=== PATIENT | female | born 1975 | race Caucasian/White ===

== ENCOUNTER 2016-03-14 10:55 | Emergency (ER) | payer MEDICAID ==
[~2016-03-14 10:55] MED LIST: ABIL1TAB5 PO; ABIL1TAB7 PO; ABIL2TAB2 PO; ABIL5TAB5 PO; ARIP1TAB PO; ATOR40TA PO; BENT10CA PO; CARA1TAB2 PO; CHLOR50TA PO; CIPR500T89 PO; CLON0.5T PO; COMP1TAB PO; DOXE50CA PO; FAMO20TA PO; FLAG500T PO; GABA600T PO; HYDR25TAB PO; KLON0.5T PO; LISI-538 PO; LISI10TA4 PO; ONDA1TAB15 SL; ONDA4TAB6 SL; PAXI25TA13 PO; PHENERGAN PR; PREVMIS PO; PRIN10TA PO; PROCTOZONE PR; PROTPAK PO; SIMV20TA2 PO; SIMV40TA2 PO; SUCR1SS PO; SUCR1TA PO; SULF1TAB72 PO; TRAZ50TA4 PO; VITA50003 PO; XANA0.25 PO; ZOCO20TA PO; ZOCO40TA PO; ZOFR20TA PO; [UNRECOGNIZED DRUG - CODE] TOP; thorazine PO
[2016-03-14] MEDS ORDERED: ONDANSETRON 4 MG ORAL DISINTEGRATING TAB (S0181) As Ordered ONE (11:54)
--- NOTE | 2016-03-14 12:00 | EDDOCDS ---
Nurse's Notes [facility] Name: Mouna Klein Age: 40 yrs Sex: Female : 1975 Arrival Date: 03/14/2016 Time: 10:55 Bed TR7 Private MD: [facility] - Adults Diagnosis: Nausea;Acute upper respiratory infection, unspecified Presentation: 03/14 10:59 Presenting complaint: Patient states: "I have a head cold and I am nauseated from my jo3 sinuses dripping". I called my provider and asked for Zodragan and she made me come here". Adult Sepsis Screening: The patient does not have new or worsening altered mentation. Patient's respiratory rate is less than 22. Systolic blood pressure is greater than 100. Patient has a qSOFA score of 0- Negative Sepsis Screen. Suicide/Homicide risk assessment- the patient denies having any suicidal and/or homicidal ideations and does not present with any other emotional, behavioral or mental health complaints. Status: Patient is not a auto service dispatcher or dependent. Transition of care: patient was not received from another setting of care. 10:59 Acuity: HUSSAIN Level 5 jo3 10:59 Method Of Arrival: Walkin/Carried/Asstd jo3 Triage Assessment: 11:04 General: Appears in no apparent distress, Behavior is appropriate for age, cooperative. jo3 HIV screening NA for this visit Offered previously. Neurological: Level of Consciousness is awake, alert, Oriented to person, place, time. Respiratory: Airway is patent Respiratory effort is even, unlabored. Derm: Skin is. 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 Abilify 20 mg Oral tab 1 tab once daily 2. Crestor 10 mg Oral tab 1 tab once daily 3. klonipin 0.025 as needed 4. thorazine 50mg daily - PMHx: Hypercholesterolemia; Schizophrenia; - PSHx: Hysterectomy; left wrist; - Social history: Smoking status: Patient states was never smoker of tobacco. Smoking status: No barriers to communication noted, The patient speaks fluent Romanian, Speaks appropriately for age. - Family history: Not pertinent. - : The pt / caregiver states he / she is not on anticoagulants. Home medication list is obtained from the patient. - Exposure Risk Screening:: None identified. Screenin:57 Screening information is obtained from the patient. Fall risk: No risks identified. ck1 Assistance ADL's: requires no assistance with activities of daily living. Abuse/DV Screen: The patient / caregiver reports he/she is: not in a situation that causes fear, pain or injury. Nutritional screening: No deficits noted. Advance Directives: Currently, there is no health care proxy. home support is adequate. Assessment: 11:58 General: Appears in no apparent distress, comfortable, Behavior is appropriate for age, ck1 cooperative. Pain: Denies pain. Respiratory: Respiratory effort is unlabored, Respiratory pattern is regular, symmetrical. GI: Reports nausea. Derm: Skin is pink, warm & dry. Vital Signs: 10:57 BP 111 / 77; Pulse 95; Resp 18; Temp 99.8(O); Pulse Ox 97% on R/A; Weight 52.16 kg (R); jrd Height 4 ft. 11 in. (149.86 cm) (R); Pain 0/10; 10:57 Body Mass Index 23.23 (52.16 kg, 149.86 cm) [facility] Vitals: 10:57 Log In Time: March 14, 2016 at 10:55. [facility] ED Course: 10:56 Patient visited by Selvin Mcknight PCA. jrd 10:56 [facility] is Private Physician. jrd 10:56 Patient moved to Waiting jrd 10:58 Patient visited by Selvin Mcknight PCA. jrd 10:58 Patient moved to Pre RCE jrd 11:02 Triage Initiated jo3 11:12 Patient moved to Triage 3 jf3 11:31 [facility] dt4 11:31 Jose De Jesus Ramirez MD is Attending Physician. dt4 11:31 Patient visited by Sara Henry PA-C. dt4 11:48 [facility] is Referral Physician. dt4 11:57 Patient moved to TR7 ck1 11:58 The patient / caregiver is instructed regarding the plan of care and ED course. ck1 11:58 No IV's were initiated during this patient's visit. No procedures done that require ck1 assistance. Administered Medications: 11:57 Drug: Ondansetron ODT 4 mg [ondansetron 4 mg disintegrating tablet (1 tabs)] Route: PO; ck1 Order Results: There are currently no results for this order. Outcome: 11:51 Discharge ordered by Provider. dt4 11:57 Discharge Assessment: Patient awake, alert and oriented x 3. No cognitive and/or ck1 functional deficits noted. Patient verbalized understanding of disposition instructions. patient administered narcotics - no. The following High Risk Discharge criteria are identified: None. Discharged to home ambulatory. Condition: stable. Discharge instructions given to patient, Instructed on discharge instructions, follow up and referral plans. medication usage, Demonstrated understanding of instructions, medications, Pt was receptive of discharge instructions/ teaching. Prescriptions given X 2. No special radiology studies were completed. Property :Personal belongings accompany Pt. 11:59 Patient left the ED. ck1 Signatures: Helene Lau,RN RN ck1 Beth OvalleRN RN jo3 Sara Henry, PA-C PA-C dt4 Selvin Mcknight, ADMINISTRATIVE MANAGER ADMINISTRATIVE MANAGER jrd Wenceslao Easton,RN RN jf3 Corrections: (The following items were deleted from the chart) 11:06 11:04 Social history Smoking status: No barriers to communication noted, The patient jo3 speaks fluent Romanian, Speaks appropriately for age, jo3 MTDD
--- NOTE | 2016-03-14 12:00 | EDDOCDS ---
Physician Documentation [facility] Name: Mouna Klein Age: 40 yrs Sex: Female : 1975 Arrival Date: 03/14/2016 Time: 10:55 Bed TR7 Private MD: [facility] - Adults Disposition: 03/14/16 11:51 Discharged to Home/Self Care. Impression: Nausea, Acute upper respiratory infection, unspecified. - Condition is Stable. - Discharge Instructions: Nausea, Adult, Upper Respiratory Infection, Adult. - Prescriptions for ZOFRAN ODT 4 mg Oral - dissolve 1 tablet by ORAL route 3-4 times daily As needed do not chew, do not swallow whole; 20 tablet. Fluticasone 50 mcg/actuation Nasal [place], Suspension - inhale 2 spray by INTRANASAL route once daily; 1 bottle. - Medication Reconciliation, Local Pharmacy Hours form. - Follow up: Emergency Department; When: As needed; Reason: Worsening of conditions. Follow up: [facility] - Adults; When: Call to arrange an appointment; Reason: Wound/Symptom Recheck, Recheck today's complaints, Continuance of care. - Problem is new. - Symptoms are unchanged. Historical: - Allergies: ACETAMINOPHEN"lungs swell"; Risperdal (Swelling); - Home Meds: 1. Abilify 20 mg Oral tab 1 tab once daily 2. Crestor 10 mg Oral tab 1 tab once daily 3. klonipin 0.025 as needed 4. thorazine 50mg daily - PMHx: Hypercholesterolemia; Schizophrenia; - PSHx: Hysterectomy; left wrist; - Social history: Smoking status: Patient states was never smoker of tobacco. Smoking status: No barriers to communication noted, The patient speaks fluent Taiwanese, Speaks appropriately for age. - Family history: Not pertinent. - : The pt / caregiver states he / she is not on anticoagulants. Home medication list is obtained from the patient. - Exposure Risk Screening:: None identified. 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 11 in. (149.86 cm) (R); Pain 0/10; 10:57 Body Mass Index 23.23 (52.16 kg, 149.86 cm) jrd MDM: 11:48 Ondansetron ODT Oral Disintegrating Tablet 4 mg PO once ordered. dt4 Administered Medications: 11:57 Drug: Ondansetron ODT 4 mg [ondansetron 4 mg disintegrating tablet (1 tabs)] Route: PO; ck1 Signatures: Helene Lau RN RN ck1 Beth Ovalle RN RN jo3 Sara Henry, HARDIK PARay dt4 The chart was reviewed and I authenticate all verbal orders and agree with the evaluation and treatment provided.Corrections: (The following items were deleted from the chart) 11:06 11:04 Social history Smoking status: No barriers to communication noted, The patient manasa speaks fluent Taiwanese, Speaks appropriately for age, jo3 MTDD
--- NOTE | 2016-03-16 12:59 | EDDOCDS ---
Nurse's Notes [facility] Name: Martinez Klein Age: 40 yrs Sex: Female : 1975 Arrival Date: 03/14/2016 Time: 10:55 Bed TR7 Private MD: [facility] - Adults Diagnosis: Nausea;Acute upper respiratory infection, unspecified Presentation: 03/14 10:59 Presenting complaint: Patient states: "I have a head cold and I am nauseated from my jo3 sinuses dripping". I called my provider and asked for Zofran and she made me come here". Adult Sepsis Screening: The patient does not have new or worsening altered mentation. Patient's respiratory rate is less than 22. Systolic blood pressure is greater than 100. Patient has a qSOFA score of 0- Negative Sepsis Screen. Suicide/Homicide risk assessment- the patient denies having any suicidal and/or homicidal ideations and does not present with any other emotional, behavioral or mental health complaints. Status: Patient is not a rehabilitation services director or dependent. Transition of care: patient was not received from another setting of care. 10:59 Acuity: HUSSAIN Level 5 jo3 10:59 Method Of Arrival: Walkin/Carried/Asstd jo3 Triage Assessment: 11:04 General: Appears in no apparent distress, Behavior is appropriate for age, cooperative. jo3 HIV screening NA for this visit Offered previously. Neurological: Level of Consciousness is awake, alert, Oriented to person, place, time. Respiratory: Airway is patent Respiratory effort is even, unlabored. Derm: Skin is. 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 Abilify 20 mg Oral tab 1 tab once daily 2. Crestor 10 mg Oral tab 1 tab once daily 3. klonipin 0.025 as needed 4. thorazine 50mg daily - PMHx: Hypercholesterolemia; Schizophrenia; - PSHx: Hysterectomy; left wrist; - Social history: Smoking status: Patient states was never smoker of tobacco. Smoking status: No barriers to communication noted, The patient speaks fluent Jamaican, Speaks appropriately for age. - Family history: Not pertinent. - : The pt / caregiver states he / she is not on anticoagulants. Home medication list is obtained from the patient. - Exposure Risk Screening:: None identified. Screenin:57 Screening information is obtained from the patient. Fall risk: No risks identified. ck1 Assistance ADL's: requires no assistance with activities of daily living. Abuse/DV Screen: The patient / caregiver reports he/she is: not in a situation that causes fear, pain or injury. Nutritional screening: No deficits noted. Advance Directives: Currently, there is no health care proxy. home support is adequate. Assessment: 11:58 General: Appears in no apparent distress, comfortable, Behavior is appropriate for age, ck1 cooperative. Pain: Denies pain. Respiratory: Respiratory effort is unlabored, Respiratory pattern is regular, symmetrical. GI: Reports nausea. Derm: Skin is pink, warm & dry. Vital Signs: 10:57 BP 111 / 77; Pulse 95; Resp 18; Temp 99.8(O); Pulse Ox 97% on R/A; Weight 52.16 kg (R); d Height 4 ft. 11 in. (149.86 cm) (R); Pain 0/10; 10:57 Body Mass Index 23.23 (52.16 kg, 149.86 cm) [facility] Vitals: 10:57 Log In Time: March 14, 2016 at 10:55. [facility] ED Course: 10:56 Patient visited by Selvin Mcknight PCA. jrd 10:56 [facility] is Private Physician. jrd 10:56 Patient moved to Waiting jrd 10:58 Patient visited by Selvin Mcknight PCA. jrd 10:58 Patient moved to Pre RCE jrd 11:02 Triage Initiated jo3 11:12 Patient moved to Triage 3 jf3 11:31 [facility] dt4 11:31 Jose De Jesus Ramirez MD is Attending Physician. dt4 11:31 Patient visited by Sara Henry PA-C. dt4 11:48 [facility] is Referral Physician. dt4 11:57 Patient moved to TR7 ck1 11:58 The patient / caregiver is instructed regarding the plan of care and ED course. ck1 11:58 No IV's were initiated during this patient's visit. No procedures done that require ck1 assistance. 14:57 [facility] Payment Agreement was scanned into [employer] and attached to record. lg 15:01 T-Sheet-- Draft Copy was scanned into [employer] and attached to record. gb 15:05 Patient name changed from Mouna\\S\\Tigist\\S\\Casinelli\\S\\ to Martinez\\S\\ \\S\\Casinelli. EDMS Administered Medications: 11:57 Drug: Ondansetron ODT 4 mg [ondansetron 4 mg disintegrating tablet (1 tabs)] Route: PO; ck1 Order Results: There are currently no results for this order. Outcome: 11:51 Discharge ordered by Provider. dt4 11:57 Discharge Assessment: Patient awake, alert and oriented x 3. No cognitive and/or ck1 functional deficits noted. Patient verbalized understanding of disposition instructions. patient administered narcotics - no. The following High Risk Discharge criteria are identified: None. Discharged to home ambulatory. Condition: stable. Discharge instructions given to patient, Instructed on discharge instructions, follow up and referral plans. medication usage, Demonstrated understanding of instructions, medications, Pt was receptive of discharge instructions/ teaching. Prescriptions given X 2. No special radiology studies were completed. Property :Personal belongings accompany Pt. 11:59 Patient left the ED. ck1 Signatures: Dispatcher [employer] EDMS Jessy Cole, Reg Reg gb Anna Craft, Reg Reg lg Helene Lau,RN RN ck1 Beth OvalleRN RN jo3 Sara Henry, PA-C PA-C dt4 Selvin Mcknight, KHALIDA DIGITAL MEDIA DESIGNER d Wenceslao Easton,RN RN jf3 Corrections: (The following items were deleted from the chart) 11:06 11:04 Social history Smoking status: No barriers to communication noted, The patient jo3 speaks fluent Jamaican, Speaks appropriately for age, jo3 Chart Complete MTDD
--- NOTE | 2016-03-16 12:59 | EDDOCDS ---
Physician Documentation [facility] Name: Martinez Klein Age: 40 yrs Sex: Female : 1975 Arrival Date: 03/14/2016 Time: 10:55 Bed TR7 Private MD: [facility] - Adults Disposition: 03/14/16 11:51 Discharged to Home/Self Care. Impression: Nausea, Acute upper respiratory infection, unspecified. - Condition is Stable. - Discharge Instructions: Nausea, Adult, Upper Respiratory Infection, Adult. - Prescriptions for ZOFRAN ODT 4 mg Oral - dissolve 1 tablet by ORAL route 3-4 times daily As needed do not chew, do not swallow whole; 20 tablet. Fluticasone 50 mcg/actuation Nasal [place], Suspension - inhale 2 spray by INTRANASAL route once daily; 1 bottle. - Medication Reconciliation, Local Pharmacy Hours form. - Follow up: Emergency Department; When: As needed; Reason: Worsening of conditions. Follow up: [facility] - Adults; When: Call to arrange an appointment; Reason: Wound/Symptom Recheck, Recheck today's complaints, Continuance of care. - Problem is new. - Symptoms are unchanged. Historical: - Allergies: ACETAMINOPHEN"lungs swell"; Risperdal (Swelling); - Home Meds: 1. Abilify 20 mg Oral tab 1 tab once daily 2. Crestor 10 mg Oral tab 1 tab once daily 3. klonipin 0.025 as needed 4. thorazine 50mg daily - PMHx: Hypercholesterolemia; Schizophrenia; - PSHx: Hysterectomy; left wrist; - Social history: Smoking status: Patient states was never smoker of tobacco. Smoking status: No barriers to communication noted, The patient speaks fluent East Timorese, Speaks appropriately for age. - Family history: Not pertinent. - : The pt / caregiver states he / she is not on anticoagulants. Home medication list is obtained from the patient. - Exposure Risk Screening:: None identified. 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 11 in. (149.86 cm) (R); Pain 0/10; 10:57 Body Mass Index 23.23 (52.16 kg, 149.86 cm) jrd MDM: 11:48 Ondansetron ODT Oral Disintegrating Tablet 4 mg PO once ordered. dt4 14:57 [facility] Payment Agreement was scanned into [employer] and attached to record. lg 15:01 T-Sheet-- Draft Copy was scanned into [employer] and attached to record. gb 15:01 Financial registration complete. gb Administered Medications: 11:57 Drug: Ondansetron ODT 4 mg [ondansetron 4 mg disintegrating tablet (1 tabs)] Route: PO; ck1 Signatures: Jessy Cole, Reg Reg gb Anna Craft, Reg Reg Helene BruceRN RN ck1 Beth OvalleRN RN jo3 Sara Henry, HARDIK PARay dt4 The chart was reviewed and I authenticate all verbal orders and agree with the evaluation and treatment provided.Corrections: (The following items were deleted from the chart) 11:06 11:04 Social history Smoking status: No barriers to communication noted, The patient jo3 speaks fluent East Timorese, Speaks appropriately for age, jo3 Attachments: 14:57 [facility] Payment Agreement lg 15:01 T-Sheet-- Draft Copy gb Chart Complete MTDD
--- NOTE | 2016-03-16 12:59 | EDDOCDS ---
Physician Documentation [facility] Name: Martinez Klein Age: 40 yrs Sex: Female : 1975 Arrival Date: 03/14/2016 Time: 10:55 Bed TR7 Private MD: [facility] - Adults Disposition: 03/14/16 11:51 Discharged to Home/Self Care. Impression: Nausea, Acute upper respiratory infection, unspecified. - Condition is Stable. - Discharge Instructions: Nausea, Adult, Upper Respiratory Infection, Adult. - Prescriptions for ZOFRAN ODT 4 mg Oral - dissolve 1 tablet by ORAL route 3-4 times daily As needed do not chew, do not swallow whole; 20 tablet. Fluticasone 50 mcg/actuation Nasal [place], Suspension - inhale 2 spray by INTRANASAL route once daily; 1 bottle. - Medication Reconciliation, Local Pharmacy Hours form. - Follow up: Emergency Department; When: As needed; Reason: Worsening of conditions. Follow up: [facility] - Adults; When: Call to arrange an appointment; Reason: Wound/Symptom Recheck, Recheck today's complaints, Continuance of care. - Problem is new. - Symptoms are unchanged. Historical: - Allergies: ACETAMINOPHEN"lungs swell"; Risperdal (Swelling); - Home Meds: 1. Abilify 20 mg Oral tab 1 tab once daily 2. Crestor 10 mg Oral tab 1 tab once daily 3. klonipin 0.025 as needed 4. thorazine 50mg daily - PMHx: Hypercholesterolemia; Schizophrenia; - PSHx: Hysterectomy; left wrist; - Social history: Smoking status: Patient states was never smoker of tobacco. Smoking status: No barriers to communication noted, The patient speaks fluent [place] Islander, Speaks appropriately for age. - Family history: Not pertinent. - : The pt / caregiver states he / she is not on anticoagulants. Home medication list is obtained from the patient. - Exposure Risk Screening:: None identified. 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 11 in. (149.86 cm) (R); Pain 0/10; 10:57 Body Mass Index 23.23 (52.16 kg, 149.86 cm) jrd MDM: 11:48 Ondansetron ODT Oral Disintegrating Tablet 4 mg PO once ordered. dt4 14:57 [facility] Payment Agreement was scanned into [employer] and attached to record. lg 15:01 T-Sheet-- Draft Copy was scanned into [employer] and attached to record. gb 15:01 Financial registration complete. gb Administered Medications: 11:57 Drug: Ondansetron ODT 4 mg [ondansetron 4 mg disintegrating tablet (1 tabs)] Route: PO; ck1 Signatures: Jessy Cole, Reg Reg gb Anna Craft, Reg Reg Helene BruceRN RN ck1 Beth OvalleRN RN jo3 Sara Henry, HARDIK PARay dt4 The chart was reviewed and I authenticate all verbal orders and agree with the evaluation and treatment provided.Corrections: (The following items were deleted from the chart) 11:06 11:04 Social history Smoking status: No barriers to communication noted, The patient jo3 speaks fluent [place] Islander, Speaks appropriately for age, jo3 Attachments: 14:57 [facility] Payment Agreement lg 15:01 T-Sheet-- Draft Copy gb Chart Complete MTDD
== END 2016-03-14 11:59 | disposition home or self-care (01) ==
LOC: M ED 10:55
DX: R11.0 Nausea (principal); J06.9 Acute upper respiratory infection, unspecified; E78.00 Pure hypercholesterolemia, unspecified; F20.9 Schizophrenia, unspecified; Z79.899 Other long term (current) drug therapy; Z88.6 Allergy status to analgesic agent; Z88.8 Allergy status to other drugs, medicaments and biological substances

== ENCOUNTER 2016-04-18 07:15 | Emergency (ER) | payer MEDICAID ==
[~2016-04-18] VITALS: Ht 149.9 cm; Wt 52.2 kg
[2016-04-18] MEDS ORDERED: NS 1,000 ML IV ONE (08:30)
[2016-04-18 08:48] LABS: CONTROL LINE UCG INT CTR LINE PRESENT
[2016-04-18 08:56] LABS: BASO % 0.1 % (0.0-1.0); EOS # 0.2 K/mm3 (0.0-0.50); EOS % 1.4 % (0.0-3.0); LARGE UNSTAINED CELL # 0.2 K/mm3 (0.0-0.4); LARGE UNSTAINED CELL % 1.1 % (0.0-4.0); LYMPH # 1.5 K/mm3 (1.5-4.5); LYMPH % 11.6 % (24.0-44.0); MEAN CORPUSCULAR HEMOGLOBIN 29.8 pg (27.0-33.0); MEAN CORPUSCULAR HGB CONC 33.9 g/dl (32.0-36.5); MEAN CORPUSCULAR VOLUME 87.8 fl (80.0-96.0); MONO # 0.4 K/mm3 (0.0-0.8); MONO % 3.3 % (0.0-5.0); NEUTROPHILS # 10.6 K/mm3 (1.8-7.7); NEUTROPHILS % 82.5 % (36.0-66.0); PLATELET COUNT, AUTOMATED 287 k/mm3 (150-450); RED CELL DISTRIBUTION WIDTH 12.3 % (11.5-14.5); WHITE BLOOD COUNT 12.9 K/mm3 (4.0-10.0)
[2016-04-18] MEDS ORDERED: ONDANSETRON 4MG/2ML VIAL (J2405) IV ONE (09:00)
[2016-04-18 09:25] LABS: ALBUMIN/GLOBULIN RATIO 1.05 (1.00-1.93); ALKALINE PHOSPHATASE 87 U/L (45-117); ALT/SGPT 17 U/L (12-78); AMYLASE 105 U/L (25-115); ANION GAP 12 MEQ/L (8-16); AST/SGOT 19 U/L (15-37); BILIRUBIN,DIRECT < 0.1 MG/DL (0.0-0.2); BILIRUBIN,TOTAL 0.5 MG/DL (0.2-1.0); BLOOD UREA NITROGEN 6 MG/DL (7-18); CALCIUM LEVEL 8.6 MG/DL (8.5-10.1); CARBON DIOXIDE LEVEL 23 MEQ/L (21-32); CHLORIDE LEVEL 105 MEQ/L (98-107); CREATININE FOR GFR 0.65 MG/DL (0.55-1.02); GLOMERULAR FILTRATION RATE > 60.0 (>58); GLUCOSE, FASTING 96 MG/DL (70-105); SODIUM LEVEL 140 MEQ/L (136-145); TOTAL PROTEIN 7.8 GM/DL (6.4-8.2)
[2016-04-18] MEDS ORDERED: ZOFR4TAB3 PO (10:00)
[2016-04-18 10:14] VITALS: BP 129/74
== END 2016-04-18 10:19 | disposition home or self-care (01) ==
LOC: M ED 07:37
DX: R11.2 Nausea with vomiting, unspecified (principal); I10 Essential (primary) hypertension; E78.00 Pure hypercholesterolemia, unspecified; F41.9 Anxiety disorder, unspecified; F32.9 Major depressive disorder, single episode, unspecified; F22 Delusional disorders; Z88.8 Allergy status to other drugs, medicaments and biological substances; Z79.899 Other long term (current) drug therapy
CPT/HCPCS: 80048; 80076; 81001; 82150; 83690; 83735; 84703; 85025; 96361; 96374; 99283; J2405

== ENCOUNTER → 2016-06-13 | Outpatient (CLI) | payer MEDICAID ==
[~2016-06-13] MED LIST changes: +ZOFR4TAB3 PO
--- NOTE | 2016-06-13 16:29 | REPMRS ---
Patient History The patient states she had a clinical breast exam in Family history of prostate cancer in paternal grandfather, breast cancer in sister at age 25, breast cancer in mother at age 35, breast cancer in 2 maternal aunts, and breast cancer in maternal grandmother at age 35. Digital Woman Screen Mammo: June 13, 2016 - Exam #: [id number] Bilateral CC and MLO view(s) were taken. Technologist: Marifer Pressley, Technologist Prior study comparison: April 27, 2015, digital woman screen mammo performed at [facility]. FINDINGS: The breast tissue is heterogeneously dense. This may lower the sensitivity of mammography. There has been no change in the appearance of the mammogram from the prior studies. There is a moderate amount of residual fibroglandular tissue which is fairly symmetric. There is no interval development of dominant mass, areas of architectural distortion, or clustered microcalcification typical of malignancy. ASSESSMENT: BI-RADS/ACR category 1 mammogram. Negative. Recommendation Routine screening mammogram in 1 year (for women over age 40). This mammogram was interpreted with the aid of an FDA-approved computer-aided dectection system. Electronically Signed By: Wally Chavez MD 06/13/16 [id number]
== END ==
LOC: M WHC 14:32
PROVIDERS: ATTEND Nurse Practitioner Women's Health
DX: Z12.13 Encounter for screening for malignant neoplasm of small intestine (principal); Z80.3 Family history of malignant neoplasm of breast

== ENCOUNTER → 2016-06-13 | Outpatient (REF) | payer MEDICAID | LOC: M SFHCWAGY 14:40 | PROVIDERS: ATTEND Nurse Practitioner Women's Health | DX: Z11.3 Encounter for screening for infections with a predominantly sexual mode of transmission (principal); Z11.4 Encounter for screening for human immunodeficiency virus [HIV] ==

== ENCOUNTER 2016-07-05 15:15 | Outpatient (RCR) | payer MEDICAID | END 2016-07-11 | LOC: M PT 15:15 | PROVIDERS: ATTEND Physician Assistant | DX: Z51.89 Encounter for other specified aftercare (principal) ==

== ENCOUNTER 2016-07-20 12:24 | Emergency (ER) | payer MEDICAID ==
[~2016-07-20] VITALS: Ht 149.9 cm; Wt 58.1 kg
[2016-07-20 12:24] VITALS: BP 129/76
[2016-07-20] MEDS ORDERED: ZOFR4TAB3 PO (13:27)
[2016-07-20] MEDS ORDERED: AMOX400S2 PO (13:27)
== END 2016-07-20 13:40 | disposition home or self-care (01) ==
LOC: M ED 13:37
DX: K04.7 Periapical abscess without sinus (principal); F99 Mental disorder, not otherwise specified; Z79.899 Other long term (current) drug therapy; Z88.8 Allergy status to other drugs, medicaments and biological substances

== ENCOUNTER → 2016-07-24 | Outpatient (REF) | payer MEDICAID ==
[~2016-07-24] MED LIST changes: +AMOX400S2 PO
[2016-07-24 15:20] LABS: ALBUMIN 3.6 GM/DL (3.2-5.2); ALBUMIN/GLOBULIN RATIO 1.03 (1.00-1.93); ALKALINE PHOSPHATASE 69 U/L (45-117); ALT/SGPT 19 U/L (12-78); ANION GAP 7 MEQ/L (8-16); AST/SGOT 18 U/L (15-37); BILIRUBIN,TOTAL 1.1 MG/DL (0.2-1.0); BLOOD UREA NITROGEN 9 MG/DL (7-18); CARBON DIOXIDE LEVEL 28 MEQ/L (21-32); CHLORIDE LEVEL 105 MEQ/L (98-107); CHOLESTEROL LEVEL 287 MG/DL (<200); CREATININE FOR GFR 0.73 MG/DL (0.55-1.02); GLOMERULAR FILTRATION RATE > 60.0 (>58); GLUCOSE, FASTING 88 MG/DL (70-105); POTASSIUM SERUM 4.7 MEQ/L (3.5-5.1); SODIUM LEVEL 140 MEQ/L (136-145); TOTAL PROTEIN 7.1 GM/DL (6.4-8.2); TRIGLYCERIDES LEVEL 63 MG/DL (<150)
== END ==
LOC: M LAB REF 13:57
PROVIDERS: ATTEND Nurse Practitioner Family
DX: R11.0 Nausea (principal); E55.9 Vitamin D deficiency, unspecified

== ENCOUNTER → 2016-10-01 | Outpatient (REF) | payer OTHER ==
[~2016-10-01] MED LIST changes: +ABIL10TA9 PO; +ABIL1TAB11 PO; +ABIL1TAB13 PO; -ABIL1TAB5 PO; -ABIL1TAB7 PO; +ABIL20TA5 PO; -ABIL2TAB2 PO; -ABIL5TAB5 PO; -ATOR40TA PO; +ATOR40TA75 PO; -CARA1TAB2 PO; +CARA1TAB6 PO; +CHIL100S45 PO; +CIPR-249 PO; -CIPR500T89 PO; +CLIN150C14 PO; +CODE15TA PO; +IBUP80TA PO; +MIRT1TAB PO; -ONDA1TAB15 SL; +ONDA4TAB5 SL; +ONDA8TAB8 PO; +TRAZ50TA11 PO; -TRAZ50TA4 PO; +VITA1CAP40 PO; -VITA50003 PO
== END ==
LOC: M LAB REF 05:17
PROVIDERS: ATTEND Internal Medicine Gastroenterology
DX: R11.0 Nausea (principal)

== ENCOUNTER 2016-10-07 07:05 | Emergency (ER) | payer OTHER ==
[~2016-10-07 07:05] MED LIST changes: -CHIL100S45 PO; -CLIN150C14 PO; -CODE15TA PO; -IBUP80TA PO; -MIRT1TAB PO; -ONDA8TAB8 PO
[2016-10-07 07:12] VITALS: BP 126/83
[2016-10-07] MEDS ORDERED: CODE15TA PO (07:18)
[2016-10-07] MEDS ORDERED: MIRT1TAB PO (07:18)
[2016-10-07] MEDS ORDERED: CLINDAMYCIN 150 MG CAP PO ONE (07:30)
[2016-10-07] MEDS ORDERED: CLIN150C14 PO (07:34)
[2016-10-07] MEDS ORDERED: IBUP80TA PO (07:34)
[2016-10-07] MEDS ORDERED: ZOFR4TAB3 PO (07:36)
[2016-10-07] MEDS ORDERED: ONDANSETRON 4 MG ORAL DISINTEGRATING TAB (S0181) PO ONE (07:45)
== END 2016-10-07 08:06 | disposition home or self-care (01) ==
LOC: M ED 07:05
DX: K04.7 Periapical abscess without sinus (principal); Z98.890 Other specified postprocedural states; I10 Essential (primary) hypertension; E78.00 Pure hypercholesterolemia, unspecified; F33.9 Major depressive disorder, recurrent, unspecified; F41.9 Anxiety disorder, unspecified; F22 Delusional disorders; Z79.899 Other long term (current) drug therapy; Z88.8 Allergy status to other drugs, medicaments and biological substances

== ENCOUNTER 2016-11-30 07:19 | Emergency (ER) | payer OTHER ==
[~2016-11-30] VITALS: Ht 149.9 cm; Wt 59.1 kg
[~2016-11-30 07:19] MED LIST changes: +CLIN150C14 PO; +CODE15TA PO; +IBUP80TA PO; +MIRT1TAB PO
--- NOTE | 2016-11-30 09:04 | REP ---
MAXILLOFACIAL CT WITHOUT CONTRAST: HISTORY: Fall. There is a fracture of the medial wall of the left orbit. A moderate amount of air is present in the left orbit. Contents of the left orbit are intact. The left globe, optic nerves and rectus muscles are normal in appearance. Contents of the right orbit are normal. Minimal mucosal thickening is present in the left ethmoid sinus. The remaining sinuses are clear. The ostiomeatal units are patent. The middle and inferior nasal turbinates are partially paradoxical. There is mild deviation of the nasal septum to the right. The cribriform plate, medial tobar of the right orbit and optic canals are intact. The carotid canals form a segment of the posterolateral tobar of the sphenoid sinus. IMPRESSION: 1. Fracture of the medial wall of the left orbit. 2. Sinus mucosal thickening as described above. Signed by Bandar Chacon MD 11/30/2016 09:09 A
[2016-11-30] MEDS ORDERED: IBUPROFEN 600 MG TAB PO ONE (10:45)
[2016-11-30 11:42] VITALS: BP 150/83
[2016-12-01] MEDS ORDERED: ONDA8TAB8 PO (10:26)
[2016-12-01] MEDS ORDERED: CHIL100S45 PO (10:28)
== END 2016-11-30 11:43 | disposition short-term general hospital (02) ==
LOC: M ED 07:19
DX: S02.82XA Fracture of other specified skull and facial bones, left side, initial encounter for closed fracture (principal); W10.9XXA Fall (on) (from) unspecified stairs and steps, initial encounter; Y92.019 Unspecified place in single-family (private) house as the place of occurrence of the external cause; Y93.89 Activity, other specified; Y99.8 Other external cause status; I10 Essential (primary) hypertension; Z79.899 Other long term (current) drug therapy; Z88.8 Allergy status to other drugs, medicaments and biological substances

== ENCOUNTER 2016-12-01 08:31 | Emergency (ER) | payer OTHER ==
[~2016-12-01] VITALS: Ht 147.3 cm; Wt 59.1 kg
[2016-12-01] MEDS ORDERED: ONDA8TAB8 PO (10:26)
[2016-12-01] MEDS ORDERED: CHIL100S45 PO (10:28)
[2016-12-01] MEDS ORDERED: KETOROLAC 60 MG/2 ML VIAL (J1885) IM ONE (10:30)
[2016-12-01] MEDS ORDERED: ONDANSETRON 4 MG ORAL DISINTEGRATING TAB (S0181) PO ONE (10:30)
[2016-12-01 10:56] VITALS: BP 136/92
== END 2016-12-01 10:58 | disposition home or self-care (01) ==
LOC: M ED 08:31
DX: G44.309 Post-traumatic headache, unspecified, not intractable (principal); R11.0 Nausea; H57.8 Other specified disorders of eye and adnexa; Z79.899 Other long term (current) drug therapy; Z88.8 Allergy status to other drugs, medicaments and biological substances
CPT/HCPCS: 96372; 99283; J1885

== ENCOUNTER 2016-12-03 06:17 | Inpatient (IN) | payer OTHER ==
[~2016-12-03] VITALS: Ht 149.9 cm; Wt 57.0 kg
[~2016-12-03 06:17] MED LIST changes: +CHIL100S45 PO; +ONDA8TAB8 PO
[2016-12-03] MEDS ORDERED: CitaloPRAM (CeleXA) 20 MG TAB PO SCH (09:00)
[2016-12-03 09:32] LABS: MEAN CORPUSCULAR HEMOGLOBIN 29.9 pg (27.0-33.0); MEAN CORPUSCULAR HGB CONC 33.7 g/dl (32.0-36.5); MEAN CORPUSCULAR VOLUME 88.9 fl (80.0-96.0); PLATELET COUNT, AUTOMATED 302 10^3/uL (150-450); RED CELL DISTRIBUTION WIDTH 12.9 % (11.5-14.5); WHITE BLOOD COUNT 7.4 10^3/uL (4.0-10.0)
[2016-12-03 09:43] LABS: ALBUMIN 4.1 GM/DL (3.2-5.2); ALBUMIN/GLOBULIN RATIO 1.28 (1.00-1.93); ALKALINE PHOSPHATASE 61 U/L (45-117); ALT/SGPT 20 U/L (12-78); ANION GAP 8 MEQ/L (8-16); AST/SGOT 16 U/L (15-37); BILIRUBIN,DIRECT 0.3 MG/DL (0.0-0.2); BLOOD UREA NITROGEN 10 MG/DL (7-18); CALCIUM LEVEL 9.1 MG/DL (8.5-10.1); CARBON DIOXIDE LEVEL 23 MEQ/L (21-32); CHLORIDE LEVEL 109 MEQ/L (98-107); CREATININE FOR GFR 0.84 MG/DL (0.55-1.02); GLOMERULAR FILTRATION RATE > 60.0 (>58); GLUCOSE, FASTING 106 MG/DL (70-105); POTASSIUM SERUM 4.2 MEQ/L (3.5-5.1); SODIUM LEVEL 140 MEQ/L (136-145); TOTAL PROTEIN 7.3 GM/DL (6.4-8.2)
[2016-12-03 10:18] LABS: METHADONE URINE NEGATIVE (NEGATIVE)
[2016-12-03] MEDS ORDERED: LORazepam 2 MG TAB PO ONE (12:15)
[2016-12-03] MEDS ORDERED: IBUPROFEN 600 MG TAB PO ONE (13:15)
[2016-12-03] MEDS ORDERED: ONDANSETRON 4 MG ORAL DISINTEGRATING TAB (S0181) PO ONE (13:30)
[2016-12-03] MEDS ORDERED: traZODone 50 MG TAB PO PRN (14:45)
[2016-12-03] MEDS ORDERED: MOM 30ML SUSPENSION UDC PO PRN (14:45)
[2016-12-03] MEDS ORDERED: MAALOX 30 ML SUSP *UDC PO PRN (14:45)
[2016-12-03 15:21] LABS: CONTROL LINE HCG INT CTR LINE PRESENT
[2016-12-03 15:51] VITALS: BP 142/90
[2016-12-03] MEDS: ARIPiprazole 10 MG TAB PO SCH (20:09)
[2016-12-03] MEDS: clonazePAM 0.5 MG TAB PO PRN (20:10)
[2016-12-03] MEDS: MIRTAZAPINE 7.5MG PER 1/2 TABLET PO SCH (20:10)
[2016-12-03] MEDS: ONDANSETRON 4 MG ORAL DISINTEGRATING TAB (S0181) PO PRN (20:10)
[2016-12-04] MEDS: ONDANSETRON 4 MG ORAL DISINTEGRATING TAB (S0181) PO PRN ×2 (06:03→15:24)
[2016-12-04] MEDS: clonazePAM 0.5 MG TAB PO PRN ×2 (06:03→20:00)
[2016-12-04 06:50] VITALS: BP 130/80
[2016-12-04] MEDS: IBUPROFEN 800 MG TAB PO PRN ×2 (07:47→17:30)
[2016-12-04] MEDS: ARIPiprazole 10 MG TAB PO SCH ×2 (08:06→20:01)
[2016-12-04] MEDS ORDERED: CitaloPRAM (CeleXA) 10 MG TABLET PO SCH (09:00)
--- NOTE | 2016-12-04 10:15 | HPEPDOC ---
[facility] Medical History & Physical Date of Admission Dec 03, 2016 History and Physical PCP: Dr Andrea Salazar ATTENDING: Dr. Roddy Dias HPI: 41 yoF admitted to [facility] for unspecified mood disorder, being medically examined today. Patient was seen in the emergency department 11/30/16 related to left orbit fracture. She states she was walking down her stairs. Her left shoelace was untied and she subsequently tripped over it. She fell down 10 stairs hitting the left side of her head. She denies loss of consciousness. She was evaluated in the emergency department 11/30/16 and found to have a left orbit fracture. She was transferred to [facility] for further evaluation. According to the patient she was felt not to need any surgical intervention at this time. She was arranged for ENT follow-up and ophthalmology follow-up within 2 weeks. She states she was discharged 12/02/16. She was placed on precautions of no excessive bending, not to use straws, and not to blow her nose. She states she has had some mild nausea for which she was prescribed Zofran as needed. She was told to use ibuprofen 800 mg every 8 hours as needed for pain or headache. She states nausea has been improving. She does notice some postnasal drip which tends to cause her to have some nausea. She has occasional slight headache however this has been mild. She denies any vision changes, diplopia, dizziness, vertigo, dysarthria or dysphagia. She denies any epistaxis. No increased head pain or eye pain. She has had some bruising and swelling around her left eye. Denies any fevers, chills, weakness, fatigue, PELAYO, CP, SOB, cough, palpitations, abdominal pain, N/V/D or changes in bowel or bladder habits. PMHx: Anxiety Depression Schizophrenia Vitamin D deficiency History of head trauma at 2 years old. Hypertension Dyslipidemia History of H. pylori 2013 PSHX: [place] teeth extraction Hysterectomy 2 SOCHX: Resides in: [facility] Marital Status: Kids: 2 Employment: Unemployed Tobacco use: Denies ETOH: Denies Illicit Drugs: Denies IV Drug Use: Denies Tattoos done unprofessionally: Denies FAMHX: Mother: Alive, breast cancer s/p chemotherapy Maternal grandmother, maternal aunt and patient's sister have breast cancer Father: from an unknown cancer Siblings: Alive, well Children: Alive, well ROS: As noted in HPI, otherwise 11pt ROS of systems reviewed and remarkable only for LMP NA, hysterectomy. PE: GEN: 41yoF, appears stated age. Well-nourished, well developed. No acute distress. Alert and oriented x 3. Pleasant, interactive. HEENT: Ecchymosis and mild edema is noted around the left orbit area and left maxillary area. Pupils are equal, round, and reactive to light. Extraocular movements are intact. No nystagmus appreciated. Sclera are nonicteric. Conjunctiva without injection. Nose midline. Nasal turbinates without bogginess. EACs both patent BL. TMs both visualized and riley with good cone of light, no bulging or erythema. No facial asymmetry. Moist mucous membranes. Dentition fair. Pharynx pink and moist, no cobblestoning. Neck supple, trachea midline. No lymphadenopathy or thyromegaly appreciated. CHEST: Regular rate and rhythm, +S1, +S2 LUNGS: Clear to auscultation bilaterally. No wheezes, rales, or rhonchi. Breathing appears symmetric and easy. Patient is speaking in full sentences. No accessory muscle use. ABD: Round, soft, non-tender, non-distended. +Bowel sounds throughout. No rebound or guarding. No costovertebral angle tenderness. EXT: Pulses 2+ bilaterally dorsalis pedis and radial. No lower extremity edema appreciated. SKIN: [place], dry, warm. Capillary refill <2sec. area of erythema is noted at the right upper chest consistent with dermatophytosis. NEURO: Alert and oriented x 3. Cranial nerves III-XII are intact. No focal deficits appreciated. EKG: pending. Maxillo facial CT 11/30/16 1. Fracture of the medial wall of the left orbit. 2. Sinus mucosal thickening as described above. A&P: 41 yoF admitted to [facility] for unspecified mood disorder 1. Psych. Plan per Psychiatry. Obtain baseline EKG to assure the safety of psychiatric medications as they can prolong the QT interval. 2. Left orbit fracture. Continue with Zofran 4 mg by mouth every 8 hours as needed. Continue with ibuprofen 800 mg every 8 hours as needed. Request copy of discharge summary and discharge instructions from [facility]. Continue restrictions as per ENT [facility]. Keep appointment for outpatient follow-up with ENT and ophthalmology as arranged by Monica. 3. Vitamin D deficiency. Continue supplement. Update vitamin D level. 4. Follow up with PCP on discharge. 5. Substance use. Per psychiatry. 6. Dermatophytosis right upper chest area. Apply clotrimazole cream twice a day. Monitor. Staff member Phoebe RETANA present throughout exam. Vital Signs Vital Signs Date Time Temp Pulse Resp B/P (MAP) Pulse Ox O2 Delivery O2 Flow Rate FiO2 12/04/16 06:50 98.8 92 16 130/80 (97) 12/03/16 15:51 Room Air 12/03/16 15:28 96 Laboratory Data Labs 24H Item Value Date Time Calcium Level 8.3 MG/DL L 07/14/15 0752 Total Bilirubin 1.0 MG/DL 07/14/15 0752 Direct Bilirubin 0.2 MG/DL 07/14/15 0752 Aspartate Amino Transf (AST/SGOT) 21 U/L 07/14/15 0752 Alanine Aminotransferase (ALT/SGPT) 14 U/L 07/14/15 0752 Alkaline Phosphatase 61 U/L 07/14/15 0752 Total Protein 7.1 GM/DL 07/14/15 0752 Albumin 4.1 GM/DL 07/14/15 0752 Albumin/Globulin Ratio 1.37 07/14/15 0752 Thyroid Stimulating Hormone (TSH) 1.390 uIU/ML 07/14/15 0752 White Blood Count 7.4 10^3/uL 12/03/16 0857 Red Blood Count 4.68 10^6/uL 12/03/16 0857 Hemoglobin 14.0 g/dl 12/03/16 0857 Hematocrit 41.6 % 12/03/16 0857 Mean Corpuscular Volume 88.9 fl 12/03/16 0857 Mean Corpuscular Hemoglobin 29.9 pg 12/03/16 0857 Mean Corpuscular Hemoglobin Concent 33.7 g/dl 12/03/16 0857 Red Cell Distribution Width 12.9 % 12/03/16 0857 Platelet Count 302 10^3/uL 12/03/16 0857 Nucleated Red Blood Cells % (auto) 0.0 % 12/03/16 0857 Sodium Level 140 MEQ/L 12/03/16 0857 Potassium Level 4.2 MEQ/L 12/03/16 0857 Chloride Level 109 MEQ/L H 12/03/16 0857 Carbon Dioxide Level 23 MEQ/L 12/03/16 0857 Anion Gap 8 MEQ/L 12/03/16 0857 Blood Urea Nitrogen 10 MG/DL 12/03/16 0857 Creatinine 0.84 MG/DL 12/03/16 0857 Glomerular Filtration Rate > 60.0 12/03/16 0857 Fasting Glucose 106 MG/DL H 12/03/16 0857 Calcium Level 9.1 MG/DL 12/03/16 0857 Total Bilirubin 2.0 MG/DL H 12/03/16 0857 Direct Bilirubin 0.3 MG/DL H 12/03/16 0857 Aspartate Amino Transf (AST/SGOT) 16 U/L 12/03/16 0857 Alanine Aminotransferase (ALT/SGPT) 20 U/L 12/03/16 0857 Alkaline Phosphatase 61 U/L 12/03/16 0857 Total Protein 7.3 GM/DL 12/03/16 0857 Albumin 4.1 GM/DL 12/03/16 0857 Albumin/Globulin Ratio 1.28 12/03/16 0857 Thyroid Stimulating Hormone (TSH) 1.150 uIU/ML 12/03/16 0857 Human Chorionic Gonadotropin, Qual NEGATIVE 12/03/16 0857 Salicylates Level 2.4 MG/DL L 12/03/16 0857 Urine Opiates Screen NEGATIVE 12/03/16 0946 Urine Methadone Screen NEGATIVE 12/03/16 0946 Acetaminophen Level < 2.0 UG/ML L 12/03/16 0857 Urine Barbiturates Screen NEGATIVE 12/03/16 0946 Urine Phencyclidine Screen NEGATIVE 12/03/16 0946 Urine Amphetamines Screen NEGATIVE 12/03/16 0946 Urine Benzodiazepines Screen NEGATIVE 12/03/16 0946 Urine Cocaine Metabolite Screen NEGATIVE 12/03/16 0946 Urine Cannabinoids Screen POSITIVE H 12/03/16 0946 Ethyl Alcohol Level < 0.003 % 12/03/16 0857 Home Medications Scheduled Aripiprazole (Aripiprazole) 10 Mg Tab, 10 MG PO BID for mood Ergocalciferol (Vitamin D) 50,000 Unit Cap, 50,000 UNIT PO 1XWK for Vit D Supplement Mirtazapine (Mirtazapine) 7.5 Mg Tab, 7.5 MG PO QHS Scheduled PRN Clonazepam (Clonazepam) 0.5 Mg Tab, 0.5 MG PO BIDP PRN for anxiety Ibuprofen (Childrens Motrin) 100 Mg/5 Ml Eleanor, 800 MG PO Q8HP PRN for pain Ondansetron (Ondansetron Odt) 8 Mg Tab, 8 MG PO Q8HP PRN for NAUSEA Allergies Coded Allergies: Risperidone (Verified Allergy, Severe, TONGUE SWELLS, 11/30/16) Acetaminophen (Verified Allergy, Intermediate, HIVES, 11/30/16) [place] (Verified Allergy, Mild, RASH, 11/30/16) Faye Mcmillan Dec 04, 2016 10:14
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
[2016-12-04] MEDS: CLOTRIMAZOLE 1% TOPICAL CREAM 30GM TOP SCH ×2 (10:56→20:01)
[2016-12-04 18:00] VITALS: BP 118/70
[2016-12-04] MEDS: MIRTAZAPINE 7.5MG PER 1/2 TABLET PO SCH (20:01)
[2016-12-05 07:14] VITALS: BP 141/89
[2016-12-05] MEDS: ONDANSETRON 4 MG ORAL DISINTEGRATING TAB (S0181) PO PRN ×3 (07:41→20:19)
[2016-12-05] MEDS: ARIPiprazole 10 MG TAB PO SCH ×2 (08:08→20:18)
[2016-12-05] MEDS: clonazePAM 0.5 MG TAB PO PRN ×2 (08:08→20:18)
[2016-12-05] MEDS: CLOTRIMAZOLE 1% TOPICAL CREAM 30GM TOP SCH ×2 (08:08→20:19)
[2016-12-05] MEDS: VITAMIN D 1,000 INTERNATIONAL UNITS TABLET PO SCH (09:21)
--- NOTE | 2016-12-05 18:11 | IPN ---
DATE: 12/05/2016 41-year-old female with history of schizophrenia admitted with command auditory hallucinations telling to hurt herself, also visual hallucinations and very high anxiety. The patient was unable to sleep or relax and was afraid she was going to end up hurting herself. MEDICATIONS: - Abilify 10 mg by mouth twice a day - Remeron 7.5 mg by mouth at bedtime - Klonopin 0.5 mg by mouth twice a day as needed for anxiety - trazodone 50 mg by mouth at bedtime as needed for insomnia SUBJECTIVE: "I am feeling about the same. I still hear the voices". OBJECTIVE: No major changes from yesterday. The patient continues with command auditory hallucinations and visual hallucinations. She is highly anxious. The patient is tolerating well the medication. Is compliant with the treatment and recommendation. Is motivated to get better. Is insightful about her psychiatric illness, but again highly anxious. MENTAL STATUS EXAM: The patient is dressed in [facility]. The patient is clean and well groomed. Has fair eye contact. Speech is normal in rate, volume and articulation. Mood is highly anxious. Affect is blunted. Patient reports auditory and visual hallucinations as above. Memory is fair. Patient is fully oriented. Patient is able to contract for safety during the interview, but reports command auditory hallucinations and is afraid she may hurt herself. Insight and judgment is limited. ASSESSMENT: 1. Schizophrenia. 2. Panic disorder. PLAN: 1. Continue with Abilify 10 mg by mouth twice a day 2. Continue Remeron 7.5 mg by mouth at bedtime 3. Continue Klonopin 0.5 mg by mouth twice a day as needed anxiety 4. Continue trazodone 50 mg by mouth at bedtime as needed for insomnia. 5. Continue medication management, individual and group therapy.
[2016-12-05] MEDS: MIRTAZAPINE 7.5MG PER 1/2 TABLET PO SCH (20:19)
--- NOTE | 2016-12-05 20:52 | ECGEPIP ---
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
[2016-12-06] MEDS: ONDANSETRON 4 MG ORAL DISINTEGRATING TAB (S0181) PO PRN ×3 (06:28→20:17)
[2016-12-06 07:11] VITALS: BP 115/69
[2016-12-06] MEDS: CLOTRIMAZOLE 1% TOPICAL CREAM 30GM TOP SCH ×2 (08:30→20:17)
[2016-12-06] MEDS: VITAMIN D 1,000 INTERNATIONAL UNITS TABLET PO SCH (08:30)
[2016-12-06] MEDS: clonazePAM 0.5 MG TAB PO PRN ×2 (08:30→20:17)
[2016-12-06] MEDS: ARIPiprazole 10 MG TAB PO SCH ×2 (08:32→20:17)
[2016-12-06 18:00] VITALS: BP 130/85
[2016-12-06] MEDS: MIRTAZAPINE 7.5MG PER 1/2 TABLET PO SCH (20:17)
--- NOTE | 2016-12-06 21:01 | MHIPN ---
DATE: 12/06/2016 A 41-year-old female with a history of schizophrenia, admitted for command auditory hallucinations telling her to hurt herself, also reported visual hallucinations and was somewhat paranoid. Patient was unable to sleep or relax and was afraid that she was end up hurting herself. MEDICATIONS: - Abilify 10 mg by mouth twice a day - Remeron 7.5 mg by mouth nightly - Klonopin 0.5 mg by mouth twice a day as needed for anxiety - trazodone 50 mg by mouth nightly as needed for insomnia SUBJECTIVE: "I'm still hearing the voices, but I think I'm a little better." OBJECTIVE: No major changes, although she reports some improvement on the intensity and frequency of the voices. The voices are still commanding in nature, telling her to kill herself. The patient is denying side effects from the medication. Patient is highly anxious. Patient is motivated for treatment and is compliant with recommendations. MENTAL STATUS EXAMINATION: Patient is dressed in [facility]. Patient is calm and cooperative during the interview, although she is highly anxious. Has fair eye contact. Speech is normal in rate, volume and articulation. Mood is anxious and depressed. Affect is labile. Continues somewhat paranoid. Patient reports command auditory hallucinations and also visual hallucinations. Memory is fair. The patient is fully oriented. Associations are intact. Thinking is logical. Thought content is appropriate. Patient is able to contract for safety during the interview, although she reports command auditory hallucinations telling her to kill herself. Insight and judgment is improving. ASSESSMENT: 1. Schizophrenia. 2. Panic disorder. PLAN: 1. Continue with Abilify 10 mg by mouth twice a day. 2. Continue Remeron 7.5 mg by mouth nightly. 3. Continue Klonopin 0.5 mg by mouth twice a day as needed for anxiety. 4. Continue trazodone 50 mg by mouth nightly as needed for insomnia. 5. Continue medication management, individual and group therapy.
[2016-12-07] MEDS: ONDANSETRON 4 MG ORAL DISINTEGRATING TAB (S0181) PO PRN ×4 (02:01→17:54)
[2016-12-07 06:57] VITALS: BP 122/67
[2016-12-07] MEDS: clonazePAM 0.5 MG TAB PO PRN ×2 (08:08→20:14)
[2016-12-07] MEDS: VITAMIN D 1,000 INTERNATIONAL UNITS TABLET PO SCH (08:08)
[2016-12-07] MEDS: ARIPiprazole 10 MG TAB PO SCH ×2 (08:08→20:14)
[2016-12-07] MEDS: CLOTRIMAZOLE 1% TOPICAL CREAM 30GM TOP SCH ×2 (08:08→20:15)
[2016-12-07 18:00] VITALS: BP 128/84
[2016-12-07] MEDS: MIRTAZAPINE 7.5MG PER 1/2 TABLET PO SCH (20:14)
[2016-12-08 07:12] VITALS: BP 128/81
[2016-12-08] MEDS: ONDANSETRON 4 MG ORAL DISINTEGRATING TAB (S0181) PO PRN ×2 (07:27→12:49)
[2016-12-08] MEDS: clonazePAM 0.5 MG TAB PO PRN ×2 (08:06→20:10)
[2016-12-08] MEDS: VITAMIN D 1,000 INTERNATIONAL UNITS TABLET PO SCH (08:06)
[2016-12-08] MEDS: CLOTRIMAZOLE 1% TOPICAL CREAM 30GM TOP SCH ×2 (08:06→20:10)
[2016-12-08] MEDS: ARIPiprazole 10 MG TAB PO SCH ×2 (08:06→20:10)
--- NOTE | 2016-12-08 14:23 | MHIPN ---
DATE OF SERVICE: 12/07/2016 HISTORY: 41 years old female with history of schizophrenia admitted with command auditory hallucination telling her to hurt herself. She also reported visual hallucination, and she was somewhat paranoid. She was unable to sleep or relax and was afraid she will end up hurting herself. MEDICATIONS: - Abilify 10 mg by mouth twice a day - Remeron 7.5 mg by mouth nightly - Klonopin 0.5 mg by mouth twice a day as needed for anxiety - trazodone 50 mg by mouth nightly as needed for insomnia SUBJECTIVE: "I'm still hearing the voices but may be better." OBJECTIVE: The patient is improving very slowly. She is reporting auditory and visual hallucinations, but apparently the frequency and the intensity are somewhat decreasing. She is still anxious. She is sleeping well with the help of medication. She is more insightful. She is motivated and compliant with the treatment. MENTAL STATUS EXAMINATION: The patient is dressed in [facility]. The patient is cooperative during the examination. Has fair eye contact. Speech is somewhat pressured. Mood is anxious. Affect is labile. Continues to have paranoid delusions and auditory and visual hallucinations. Memory is fair. The patient is fully oriented. Associations are intact. Thinking is logical. Thought content is appropriate. The patient is able to contract for safety during the hospitalization and admits to have intermittent suicidal thoughts when has the hallucination. Insight and judgment is limited. ASSESSMENT: 1. Schizophrenia. 2. Panic disorder. 3. Command auditory hallucinations. PLAN: 1. Continue Abilify 10 mg by mouth twice a day. 2. Remeron 7.5 mg by mouth nightly. 3. Klonopin 0.5 mg by mouth twice a day as needed for anxiety. 4. Discontinue trazodone. 5. Continue medication management, individual and group therapy.
[2016-12-08 18:00] VITALS: BP 133/91
[2016-12-08] MEDS: MIRTAZAPINE 7.5MG PER 1/2 TABLET PO SCH (20:10)
[2016-12-08] MEDS: SODIUM CHLORIDE NASAL 0.65% SPRAY BTL (OCEAN) SCH (22:54)
[2016-12-09 06:00] VITALS: BP 108/59
[2016-12-09] MEDS: SODIUM CHLORIDE NASAL 0.65% SPRAY BTL (OCEAN) SCH ×3 (08:13→20:08)
[2016-12-09] MEDS: CLOTRIMAZOLE 1% TOPICAL CREAM 30GM TOP SCH ×2 (08:14→20:08)
[2016-12-09] MEDS: clonazePAM 0.5 MG TAB PO PRN ×2 (08:14→20:07)
[2016-12-09] MEDS: ONDANSETRON 4 MG ORAL DISINTEGRATING TAB (S0181) PO PRN ×2 (08:14→17:16)
[2016-12-09] MEDS: VITAMIN D 1,000 INTERNATIONAL UNITS TABLET PO SCH (08:15)
[2016-12-09] MEDS: ARIPiprazole 10 MG TAB PO SCH ×2 (08:15→20:08)
[2016-12-09 18:00] VITALS: BP 140/68
[2016-12-09] MEDS: MIRTAZAPINE 7.5MG PER 1/2 TABLET PO SCH (21:13)
[2016-12-10 06:26] VITALS: BP 110/71
[2016-12-10] MEDS: ARIPiprazole 10 MG TAB PO SCH (08:06)
[2016-12-10] MEDS: CLOTRIMAZOLE 1% TOPICAL CREAM 30GM TOP SCH (08:06)
[2016-12-10] MEDS: SODIUM CHLORIDE NASAL 0.65% SPRAY BTL (OCEAN) SCH (08:06)
[2016-12-10] MEDS: clonazePAM 0.5 MG TAB PO PRN (08:06)
[2016-12-10] MEDS: VITAMIN D 1,000 INTERNATIONAL UNITS TABLET PO SCH (08:06)
[2016-12-10] MEDS: ONDANSETRON 4 MG ORAL DISINTEGRATING TAB (S0181) PO PRN (08:09)
[2016-12-10] MEDS ORDERED: CLON0.5T PO (12:29)
--- NOTE | 2016-12-11 18:31 | MHDS ---
DATE OF ADMISSION: 12/03/2016 DATE OF DISCHARGE: 12/10/2016 LEGAL STATUS AT ADMISSION: 9.39 legal status. HISTORY OF PRESENT ILLNESS: A 41-year-old female with long history of schizophrenia, admitted to our unit on a 9.39 legal status. Patient came to the emergency department (ED) complaining of increased intensity, severity, and quality of the auditory hallucinations. Patient stated that has been hearing voices telling her to hurt herself and says she is afraid is going to end up harming herself. Patient came to the ED 2 days prior to this admission and was diagnosed with traumatic left orbital bone injury. She was transferred to [facility] for treatment and recommendation. Since then she reports her anxiety has increased significantly. Has not been able to relax or sleep. Consequently, her auditory or visual hallucinations have increased, as stated above. Reports that the voices are telling her "You are stupid." "The world would be better without you." "You are going to ." Since she has been hearing the voices, her depressive symptoms have also increased, feeling depressed, sad, useless, stupid with very poor self-esteem and panic-like symptoms. Again, unable to relax, sleep, or eat normally. LABORATORY DATA AT ADMISSION: Her CBC was unremarkable. CMP showed a total bilirubin of 2.0, direct bilirubin of 0.3. Rest within normal limits. TSH within normal limits. HCG was negative. Blood alcohol level was positive for cannabis. Rest was negative. Blood alcohol level was negative. HOSPITAL COURSE: After the first evaluation, patient was started on Abilify 10 mg by mouth twice a day, Remeron 7.5 mg by mouth at bedtime, Klonopin 0.5 mg by mouth twice a day as needed for anxiety. With the above medication patient was stabilized. Patient had no complications during this hospital admission. Patient denied side effect. Her psychotic symptoms, auditory and visual hallucinations, decreased slowly but steadily throughout the hospitalization. The evaluation on 12/10/2016 showed that the patient has some auditory hallucinations, but they are back to baseline. Patient says that it is like the radio at the back of the room, but she is not paying attention to them. Patient also reports that the visual hallucinations have returned to baseline. She is less depressed. She has been motivated for treatment. She has been interacting well with other patients and staff. She has been sleeping well, so at this point patient no longer meets criteria for involuntary hospitalization.. She would like to be discharged and be able to see her doctor tomorrow for the bone fracture. She is discharged in stable condition. DISCHARGE MEDICATIONS: - Abilify 10 mg by mouth twice a day - Remeron 7.5 mg by mouth at bedtime - Klonopin 0.5 mg by mouth twice a day as needed for anxiety MENTAL STATUS EXAMINATION: At discharge, patient is dressed in [facility]. Patient is calm and cooperative. Speech is clear, coherent with normal rate and is spontaneous. Patient has good eye contact. Mood is appropriate and congruent with mood. Patient is oriented to time, place, person, and situation. Maintains attention and concentration correctly. Instant recall, recent and remote memory are intact. Thought processes are coherent, logical, and goal directed. Patient has auditory hallucinations, but they are back to baseline, and she is not reacting to them. Also, she reports visual hallucinations, but again, they are at baseline. No evidence of paranoid delusions. Denies suicidal or homicidal ideation. Judgment and insight are fair. DISCHARGE DIAGNOSES: Lorman I: Schizophrenia, panic disorder. Lorman II: Deferred. Lorman III: Fracture of the left orbital bone. CONDITION ON DISCHARGE: Stable. No suicidal or homicidal ideation. Auditory and visual hallucinations are at baseline. No paranoid delusions. INSTRUCTIONS TO THE PATIENT: Patient is to continue taking her medications as prescribed and followup appointments. She is advised to maintain absolute sobriety from drugs and alcohol. Patient has scheduled appointment for medication management, individual psychotherapy, and primary care physician.
== END 2016-12-10 13:25 | disposition home or self-care (01) | DRG 750 ==
LOC: M ED 06:17 → M ED INP 14:31 → M PSY 15:40
PROVIDERS: ADMIT Psychiatry & Neurology Psychiatry; ATTEND Psychiatry & Neurology Psychiatry
DX: F20.9 Schizophrenia, unspecified (principal); F41.0 Panic disorder [episodic paroxysmal anxiety]; S02.82XD Fracture of other specified skull and facial bones, left side, subsequent encounter for fracture with routine healing; W10.9XXD Fall (on) (from) unspecified stairs and steps, subsequent encounter; Y92.009 Unspecified place in unspecified non-institutional (private) residence as the place of occurrence of the external cause; B35.8 Other dermatophytoses; E55.9 Vitamin D deficiency, unspecified; I10 Essential (primary) hypertension; E78.5 Hyperlipidemia, unspecified; Z79.899 Other long term (current) drug therapy; Z88.6 Allergy status to analgesic agent; Z88.8 Allergy status to other drugs, medicaments and biological substances

== ENCOUNTER → 2017-03-18 | Outpatient (REF) | payer OTHER, MEDICAID ==
[2017-03-18 19:35] LABS: BASO % 0.3 % (0.0-1.0); EOS # 0.3 10^3/uL (0.0-0.50); EOS % 3.6 % (0.0-3.0); HEMATOCRIT 41.3 % (36.0-47.0); HEMOGLOBIN 13.7 g/dl (12.0-16.0); IMMATURE GRANULOCYTE % 0.3 % (0-0); LYMPH # 3.3 10^3/uL (1.5-4.5); MEAN CORPUSCULAR HEMOGLOBIN 29.8 pg (27.0-33.0); MEAN CORPUSCULAR HGB CONC 33.2 g/dl (32.0-36.5); MONO # 0.6 10^3/uL (0.0-0.8); MONO % 6.1 % (0.0-5.0); NEUTROPHILS # 5.3 10^3/uL (1.8-7.7); NEUTROPHILS % 55.7 % (36.0-66.0); PLATELET COUNT, AUTOMATED 337 10^3/uL (150-450); RED BLOOD COUNT 4.59 10^6/uL (4.00-5.40); RED CELL DISTRIBUTION WIDTH 12.5 % (11.5-14.5); WHITE BLOOD COUNT 9.6 10^3/uL (4.0-10.0)
== END ==
LOC: M LAB REF 17:57
DX: R21 Rash and other nonspecific skin eruption (principal)

== ENCOUNTER 2017-04-01 08:30 | Emergency (ER) | payer OTHER, MEDICAID ==
[2017-04-01] MEDS: ONDANSETRON 4 MG ORAL DISINTEGRATING TAB (S0181) PO (09:04)
[2017-04-01 09:11] LABS: BASO % 0.4 % (0.0-1.0); EOS # 0.3 10^3/uL (0.0-0.50); HEMATOCRIT 42.4 % (36.0-47.0); HEMOGLOBIN 14.4 g/dl (12.0-16.0); IMMATURE GRANULOCYTE % 0.3 % (0-3.0); LYMPH # 2.4 10^3/uL (1.5-4.5); LYMPH % 34.4 % (24.0-44.0); MEAN CORPUSCULAR HEMOGLOBIN 30.1 pg (27.0-33.0); MEAN CORPUSCULAR VOLUME 88.5 fl (80.0-96.0); MONO # 0.4 10^3/uL (0.0-0.8); MONO % 6.1 % (0.0-5.0); NEUTROPHILS # 3.9 10^3/uL (1.8-7.7); NEUTROPHILS % 54.8 % (36.0-66.0); PLATELET COUNT, AUTOMATED 353 10^3/uL (150-450); RED BLOOD COUNT 4.79 10^6/uL (4.00-5.40); RED CELL DISTRIBUTION WIDTH 12.4 % (11.5-14.5); WHITE BLOOD COUNT 7.1 10^3/uL (4.0-10.0)
[2017-04-01 09:35] LABS: ALBUMIN/GLOBULIN RATIO 1.03 (1.00-1.93); ALKALINE PHOSPHATASE 60 U/L (45-117); ALT/SGPT 21 U/L (12-78); ANION GAP 8 MEQ/L (8-16); AST/SGOT 19 U/L (7-37); BILIRUBIN,DIRECT 0.1 MG/DL (0.0-0.2); BILIRUBIN,TOTAL 0.8 MG/DL (0.2-1.0); BLOOD UREA NITROGEN 13 MG/DL (7-18); CALCIUM LEVEL 8.8 MG/DL (8.5-10.1); CARBON DIOXIDE LEVEL 24 MEQ/L (21-32); CHLORIDE LEVEL 106 MEQ/L (98-107); CREATININE FOR GFR 0.73 MG/DL (0.55-1.30); GLOMERULAR FILTRATION RATE > 60.0 (>58); GLUCOSE, FASTING 96 MG/DL (70-100); LIPASE 222 U/L (73-393); SODIUM LEVEL 138 MEQ/L (136-145); TOTAL PROTEIN 7.9 GM/DL (6.4-8.2)
== END 2017-04-01 10:05 | disposition home or self-care (01) ==
LOC: M ED 08:30
DX: R11.2 Nausea with vomiting, unspecified (principal); Z87.19 Personal history of other diseases of the digestive system; Z79.899 Other long term (current) drug therapy; Z88.6 Allergy status to analgesic agent; Z88.8 Allergy status to other drugs, medicaments and biological substances
CPT/HCPCS: 83690

== ENCOUNTER → 2017-04-05 | Outpatient (REF) | payer OTHER ==
[2017-04-07 00:06] LABS: H PYLORI STOOL ANTIGEN Negative (Negative)
== END ==
LOC: M LAB REF 09:05
DX: R11.0 Nausea (principal)

== ENCOUNTER 2017-04-16 12:19 | Outpatient (RCR) | payer OTHER | END 2017-05-11 | LOC: M PT 12:19 | DX: Z51.89 Encounter for other specified aftercare (principal); M25.511 Pain in right shoulder | CPT/HCPCS: 97010 ==

== ENCOUNTER → 2017-05-06 | Outpatient (REF) | payer OTHER ==
[2017-05-06 19:55] LABS: TESTOSTERONE 34 NG/DL (14-76)
[2017-05-06 19:55] LABS: LUTEINIZING HORMONE 10.6 mIU/mL; PROGESTERONE 7.8 NG/ML
[2017-05-06 19:56] LABS: FOLLICLE STIMULATING HORMONE 6.2 mIU/mL; IRON (FE) 55 UG/DL (50-170); VITAMIN B12 LEVEL 469 PG/ML (247-911)
[2017-05-06 20:41] LABS: ESTIMATED AVERAGE GLUCOSE 111 MG/DL (60-110); HEMOGLOBIN A1c 5.5 %
== END ==
LOC: M LAB REF 18:34
DX: K14.6 Glossodynia (principal)
CPT/HCPCS: 83001

== ENCOUNTER 2017-05-21 13:25 | Outpatient (RCR) | payer OTHER | END 2017-06-10 | LOC: M PT 13:25 | DX: Z51.89 Encounter for other specified aftercare (principal); M25.511 Pain in right shoulder | CPT/HCPCS: 97010 ==

== ENCOUNTER → 2017-06-14 | Outpatient (REF) | payer OTHER ==
[2017-06-15 00:05] LABS: CHLAMYDIA DNA AMPLIFICATION NEGATIVE (NEGATIVE); GC DNA AMPLIFICATION NEGATIVE (NEGATIVE)
== END ==
LOC: M SFHCWAGY 17:59
DX: Z11.3 Encounter for screening for infections with a predominantly sexual mode of transmission (principal)

== ENCOUNTER → 2017-06-14 | Outpatient (CLI) | payer OTHER | LOC: M WHC 12:42 | DX: Z12.31 Encounter for screening mammogram for malignant neoplasm of breast (principal); Z80.3 Family history of malignant neoplasm of breast; R92.8 Other abnormal and inconclusive findings on diagnostic imaging of breast | CPT/HCPCS: 77067 ==

== ENCOUNTER → 2017-06-14 | Outpatient (REF) | payer OTHER ==
[2017-06-14 16:30] LABS: HEPATITIS B SURFACE ANTIBODY NEGATIVE (POSITIVE)
[2017-06-14 17:09] LABS: HIV 1&2 SCREEN CENTAUR NEGATIVE (NEGATIVE)
[2017-06-14 17:09] LABS: HEPATITIS C VIRUS ABY INDEX < 0.0 INDEX (<0.8)
== END ==
LOC: M SFHCWAGY 13:18
DX: Z11.4 Encounter for screening for human immunodeficiency virus [HIV] (principal); Z11.3 Encounter for screening for infections with a predominantly sexual mode of transmission

== ENCOUNTER 2017-06-16 08:25 | Emergency (ER) | payer OTHER | END 2017-06-16 09:18 | disposition home or self-care (01) | LOC: M ED 08:25 | DX: K13.79 Other lesions of oral mucosa (principal); I10 Essential (primary) hypertension; E78.5 Hyperlipidemia, unspecified; F20.9 Schizophrenia, unspecified; F31.9 Bipolar disorder, unspecified; Z88.8 Allergy status to other drugs, medicaments and biological substances; Z79.899 Other long term (current) drug therapy | CPT/HCPCS: 99283 ==

== ENCOUNTER 2017-06-23 16:48 | Emergency (ER) | payer OTHER ==
[2017-06-23] MEDS: ADACEL/BOOSTRIX VACCINE (DIPHTH/PERTUSS/ACELL/TETANUS)0.5ML SYR (90715) IM (16:52)
[2017-06-23] MEDS: LevoFLOXacin 750 MG TABLET PO (16:59)
== END 2017-06-23 17:26 | disposition home or self-care (01) ==
LOC: M ED 16:48
DX: S91.331A Puncture wound without foreign body, right foot, initial encounter (principal); W45.0XXA Nail entering through skin, initial encounter; Y92.830 Public park as the place of occurrence of the external cause; Z88.8 Allergy status to other drugs, medicaments and biological substances; Z79.899 Other long term (current) drug therapy
CPT/HCPCS: 90715

== ENCOUNTER → 2017-08-02 | Outpatient (CLI) | payer OTHER ==
[2017-08-02 14:26] LABS: ALBUMIN/GLOBULIN RATIO 1.08 (1.00-1.93); ALKALINE PHOSPHATASE 56 U/L (45-117); ALT/SGPT 20 U/L (12-78); ANION GAP 10 MEQ/L (8-16); AST/SGOT 14 U/L (7-37); BILIRUBIN,TOTAL 1.6 MG/DL (0.2-1.0); BLOOD UREA NITROGEN 11 MG/DL (7-18); CALCIUM LEVEL 8.8 MG/DL (8.5-10.1); CARBON DIOXIDE LEVEL 26 MEQ/L (21-32); CHLORIDE LEVEL 105 MEQ/L (98-107); CREATININE FOR GFR 0.86 MG/DL (0.55-1.30); GLOMERULAR FILTRATION RATE > 60.0 (>58); GLUCOSE, FASTING 87 MG/DL (70-100); POTASSIUM SERUM 4.1 MEQ/L (3.5-5.1); SODIUM LEVEL 141 MEQ/L (136-145); TOTAL PROTEIN 7.7 GM/DL (6.4-8.2)
== END ==
LOC: M LAB 13:20
DX: R11.2 Nausea with vomiting, unspecified (principal)
CPT/HCPCS: 80053

== ENCOUNTER → 2017-08-13 | Outpatient (CLI) | payer OTHER | LOC: M RAD 07:08 | DX: R11.2 Nausea with vomiting, unspecified (principal) | CPT/HCPCS: 76705 ==

== ENCOUNTER → 2017-08-16 | Outpatient (REF) | payer OTHER ==
[2017-08-18 00:07] LABS: H PYLORI STOOL ANTIGEN Negative (Negative)
== END ==
LOC: M LAB REF 10:31
DX: R11.2 Nausea with vomiting, unspecified (principal)
CPT/HCPCS: 87102

== ENCOUNTER 2017-10-08 12:09 | Outpatient (RCR) | payer OTHER | END 2017-10-11 | LOC: M PT 12:09 | DX: M75.21 Bicipital tendinitis, right shoulder (principal); Z51.89 Encounter for other specified aftercare | CPT/HCPCS: 97010 ==

== ENCOUNTER 2017-10-28 11:01 | Outpatient (RCR) | payer OTHER | END 2017-11-10 | LOC: M PT 11:01 | DX: M25.511 Pain in right shoulder (principal) | CPT/HCPCS: 97010 ==

== ENCOUNTER 2017-11-25 14:01 | Outpatient (RCR) | payer OTHER | END 2017-12-11 | LOC: M PT 14:01 | DX: M25.511 Pain in right shoulder (principal) | CPT/HCPCS: 97010 ==

== ENCOUNTER → 2017-12-16 | Outpatient (CLI) | payer OTHER ==
[~2017-12-16] MED LIST changes: -ABIL10TA9 PO; -ABIL1TAB11 PO; -ABIL1TAB13 PO; -ABIL20TA5 PO; -AMOX400S2 PO; -ARIP1TAB PO; -ATOR40TA75 PO; -BENT10CA PO; -CARA1TAB6 PO; -CHIL100S45 PO; -CHLOR50TA PO; -CIPR-249 PO; -CLIN150C14 PO; -CLON0.5T PO; -CODE15TA PO; -COMP1TAB PO; -DOXE50CA PO; -FAMO20TA PO; -FLAG500T PO; -GABA600T PO; -HYDR25TAB PO; -IBUP80TA PO; -KLON0.5T PO; -LISI-538 PO; -LISI10TA4 PO; -MIRT1TAB PO; -ONDA4TAB5 SL; -ONDA4TAB6 SL; -ONDA8TAB8 PO; -PAXI25TA13 PO; -PHENERGAN PR; -PREVMIS PO; -PRIN10TA PO; -PROCTOZONE PR; +PROHANCE 279.3MG/ML 15ML VIAL (A9576) As Ordered; -PROTPAK PO; -SIMV20TA2 PO; -SIMV40TA2 PO; -SUCR1SS PO; -SUCR1TA PO; -SULF1TAB72 PO; -TRAZ50TA11 PO; -VITA1CAP40 PO; -XANA0.25 PO; -ZOCO20TA PO; -ZOCO40TA PO; -ZOFR20TA PO; -ZOFR4TAB3 PO; -[UNRECOGNIZED DRUG - CODE] TOP; -thorazine PO
== END ==
LOC: M RAD 12:32
DX: Z53.9 Procedure and treatment not carried out, unspecified reason (principal)
CPT/HCPCS: A9576

== ENCOUNTER → 2018-04-10 | Outpatient (CLI) | payer OTHER ==
[~2018-04-10] MED LIST changes: +ABIL10TA9 PO; +ABIL1TAB11 PO; +ABIL1TAB13 PO; +ABIL20TA5 PO; +AMOX400S2 PO; +ARIP1TAB PO; +ATOR40TA75; +ATOR40TA75 PO; +BACL10TA2; +BENT10CA PO; +CARA1TAB6 PO; +CHIL100S45 PO; +CHLOR50TA PO; +CIPR-249 PO; +CLIN150C14 PO; +CLON0.5T8 PO; +CODE15TA PO; +COMP1TAB PO; +CONRAY-43 43% 50ML VIAL (Q9960) As Ordered ONE; +DOXE50CA PO; +FAMO20TA PO; +FLAG500T PO; +FLUC150T PO; +GABA600T4 PO; +HYDR25TAB PO; +IBUP80TA PO; +KLON0.5T PO; +LEVA750T7 PO; +LISI-538 PO; +LISI10TA4 PO; +MIRT1TAB PO; +ONDA4TAB5 SL; +ONDA4TAB6 SL; +ONDA8TAB8 PO; +PAXI25TA13 PO; +PHENERGAN PR; +PREVMIS PO; +PRIN10TA PO; +PROCTOZONE PR; -PROHANCE 279.3MG/ML 15ML VIAL (A9576) As Ordered; +PROHANCE 279.3MG/ML 5ML VIAL (A9576) As Ordered ONE; +PROTPAK PO; +SIMV20TA2 PO; +SIMV40TA2 PO; +SUCR1SS PO; +SUCR1TA PO; +SULF1TAB72 PO; +TRAZ-160 PO; +VITA50005 PO; +XANA0.25 PO; +ZOCO20TA PO; +ZOCO40TA PO; +ZOFR4TAB14 PO; +ZOFR4TAB16 PO; +[UNRECOGNIZED DRUG - CODE] TOP; +thorazine PO
== END ==
LOC: M RADPRO 06:04
PROVIDERS: ATTEND Physician Assistant
DX: M25.511 Pain in right shoulder (principal); Z53.8 Procedure and treatment not carried out for other reasons

== ENCOUNTER → 2018-07-02 | Outpatient (REF) | payer OTHER, MEDICAID ==
[~2018-07-02] MED LIST changes: -CONRAY-43 43% 50ML VIAL (Q9960) As Ordered ONE; +HYDR-2541 PO; -HYDR25TAB PO; -PROHANCE 279.3MG/ML 5ML VIAL (A9576) As Ordered ONE
[2018-07-02 12:12] LABS: BASO % 0.4 % (0.0-1.0); EOS # 0.3 10^3/uL (0.0-0.50); EOS % 3.3 % (0.0-3.0); HEMATOCRIT 43.9 % (36.0-47.0); HEMOGLOBIN 14.4 g/dl (12.0-15.5); LYMPH # 2.8 10^3/uL (1.5-4.5); LYMPH % 33.7 % (24.0-44.0); MEAN CORPUSCULAR HEMOGLOBIN 29.4 pg (27.0-33.0); MEAN CORPUSCULAR HGB CONC 32.8 g/dl (32.0-36.5); MEAN CORPUSCULAR VOLUME 89.8 fl (80.0-96.0); MONO # 0.5 10^3/uL (0.0-0.8); MONO % 6.3 % (0.0-5.0); NEUTROPHILS # 4.6 10^3/uL (1.8-7.7); NEUTROPHILS % 55.9 % (36.0-66.0); PLATELET COUNT, AUTOMATED 335 10^3/uL (150-450); RED BLOOD COUNT 4.89 10^6/uL (4.00-5.40); WHITE BLOOD COUNT 8.2 10^3/uL (4.0-10.0)
[2018-07-02 12:20] LABS: APPEARANCE, URINE CLEAR (CLEAR); BACTERIA, URINE AUTO NEGATIVE (NEGATIVE); BILIRUBIN, URINE AUTO NEGATIVE (NEGATIVE); BLOOD, URINE BLOOD NEGATIVE (NEGATIVE); COLOR, URINE YELLOW (YELLOW); GLUCOSE, URINE (UA) AUTO NEGATIVE (NEGATIVE); KETONE, URINE AUTO TRACE mg/dL (NEGATIVE); LEUKOCYTE ESTERASE, URINE AUTO NEGATIVE (NEGATIVE); MUCUS, URINE SMALL (NEGATIVE); NITRITE, URINE AUTO NEGATIVE (NEGATIVE); PROTEIN, URINE AUTO NEGATIVE (NEGATIVE); RBC, URINE AUTO 4 /HPF (0-3); SPECIFIC GRAVITY URINE AUTO 1.017 (1.002-1.035); SQUAMOUS EPITHELIAL CELL UR AU 1 /HPF (0-6); UROBILINOGEN, URINE AUTO 0.2 mg/dL (0.0-2.0); WBC, URINE AUTO 0 /HPF (0-3)
[2018-07-02 12:33] LABS: ALBUMIN 4.2 GM/DL (3.2-5.2); ALT/SGPT 24 U/L (12-78); BILIRUBIN,TOTAL 0.9 MG/DL (0.2-1.0); BLOOD UREA NITROGEN 9 MG/DL (7-18); CALCIUM LEVEL 9.6 MG/DL (8.5-10.1); CARBON DIOXIDE LEVEL 26 MEQ/L (21-32); CHLORIDE LEVEL 104 MEQ/L (98-107); CHOLESTEROL LEVEL 336 MG/DL (<200); CHOLESTEROL RISK RATIO 6.339 (<5); CREATININE FOR GFR 0.72 MG/DL (0.55-1.30); FREE T4 0.83 NG/DL (0.76-1.46); GLOMERULAR FILTRATION RATE > 60.0 (>58); GLUCOSE, FASTING 88 MG/DL (70-100); HDL CHOLESTEROL 53 MG/DL (>40); LDL CHOLESTEROL 260 MG/DL (<100); NON-HDL-C 283 MG/DL; POTASSIUM SERUM 4.3 MEQ/L (3.5-5.1); SODIUM LEVEL 137 MEQ/L (136-145); TOTAL PROTEIN 7.3 GM/DL (6.4-8.2); TRIGLYCERIDES LEVEL 115 MG/DL (<150)
[2018-07-02 12:34] LABS: TOTAL 25(OH) VITAMIN D 18.6 NG/ML (30.0-100.0)
[2018-07-02 13:34] LABS: HEMOGLOBIN A1c 5.6 %
== END ==
LOC: M LAB REF 11:38
PROVIDERS: ATTEND Family Medicine
DX: Z13.228 Encounter for screening for other metabolic disorders (principal)

== ENCOUNTER → 2018-07-22 | Outpatient (CLI) | payer OTHER ==
[~2018-07-22] MED LIST changes: +MIDAZOLAM INJ 2 MG/2 ML VIAL (J2250) As Ordered ONE; -TRAZ-160 PO; +TRAZ-252 PO
[2018-07-22 11:20] VITALS: BP 137/88
--- NOTE | 2018-07-22 11:44 | REP ---
MR CERVICAL SPINE WITHOUT CONTRAST: HISTORY: Cervicalgia. COMPARISON: 04/29/2013 A disc bulge is present at the C3-4 level. There is minimal effacement of the thecal sac without spinal cord compression. The C3 neural foramina are patent. A disc bulge is present at the C4-5 level. There is minimal effacement of the thecal sac without spinal cord compression. Bilateral uncinate process hypertrophy is present. This produces minimal narrowing of the C4 neural foramina. A disc bulge is present at the C5-6 level. There is minimal effacement of the thecal sac without spinal cord compression. Bilateral uncinate process hypertrophy is present. This produces mild and moderate narrowing of the right and left C5 neural foramina respectively. There is no other disc bulge or herniation. The remaining neural foramina are patent. The spinal cord is normal in signal intensity. The C5-6 intervertebral disc is decreased in height consistent with disc degeneration. Normal signal intensity is present in the cervical vertebral bodies. IMPRESSION: There is cervical spondylosis at the C3-4 through C5-6 levels without spinal cord compression. The disc bulge at the C3-4 level is new. There has been progression of the foramina narrowing at the C5-6 level. Electronically Signed by Bandar Chacon MD 07/22/2018 11:48 A
== END ==
LOC: M SDC 08:50
PROVIDERS: ATTEND Physical Medicine & Rehabilitation
DX: M47.812 Spondylosis without myelopathy or radiculopathy, cervical region (principal); M50.21 Other cervical disc displacement, high cervical region; M48.02 Spinal stenosis, cervical region; Z79.899 Other long term (current) drug therapy; Z88.8 Allergy status to other drugs, medicaments and biological substances
CPT/HCPCS: 72141; 99156; 99157; J2250

== ENCOUNTER → 2018-07-30 | Outpatient (CLI) | payer OTHER ==
[~2018-07-30] MED LIST changes: -MIDAZOLAM INJ 2 MG/2 ML VIAL (J2250) As Ordered ONE
== END ==
LOC: M LAB 16:51
PROVIDERS: ATTEND Physical Medicine & Rehabilitation
DX: M50.320 Other cervical disc degeneration, mid-cervical region, unspecified level (principal)

== ENCOUNTER → 2018-07-31 | Outpatient (CLI) | payer OTHER ==
--- NOTE | 2018-07-31 14:52 | REPMRS ---
Patient History The patient states she had a clinical breast exam in 07/2018. Family history of breast cancer at age 35 in mother, breast cancer at age 25 in maternal half sister, breast cancer at age 35 in maternal grandmother, breast cancer under age 50 in maternal aunt, breast cancer under age 50 in maternal aunt, prostate cancer in paternal grandfather. No Hormone Replacement Therapy 3D TOMOSYNTHESIS WAS PERFORMED. The [facility] lifetime risk for breast cancer is 39.0%. Digital Woman Screen Mammo: July 31, 2018 - Exam #: [id number] Bilateral CC and MLO view(s) were taken. Technologist: Adele Ramirez, Technologist Prior study comparison: June 14, 2017, digital woman screen mammo performed at [facility]. June 13, 2016, digital woman screen mammo performed at [facility]. FINDINGS: The breast tissue is heterogeneously dense. This may lower the sensitivity of mammography. There has been no change in the appearance of the mammogram from the prior studies. There is a moderate amount of residual fibroglandular tissue which is fairly symmetric. There is no interval development of dominant mass, areas of architectural distortion, or clustered microcalcification typical of malignancy. Assessment: BI-RADS/ACR category 1 mammogram. Negative Mammogram. Recommendation Routine screening mammogram in 1 year (for women over age 40). This mammogram was interpreted with the aid of an FDA-approved computer-aided dectection system. THE LIFETIME RISK OF BREAST CANCER IS 39.0 %, THEREFORE SUPPLEMENTAL SCREENING MRI OF THE BREASTS IS RECOMMENDED IN 6 MONTHS. Electronically Signed By: Wally Chavez MD 07/31/18 7910
== END ==
LOC: M WHC 13:06
PROVIDERS: ATTEND Nurse Practitioner Women's Health
DX: Z12.31 Encounter for screening mammogram for malignant neoplasm of breast (principal); Z80.3 Family history of malignant neoplasm of breast

== ENCOUNTER → 2018-07-31 | Outpatient (REF) | payer OTHER ==
[2018-07-31 17:29] LABS: CHLAMYDIA DNA AMPLIFICATION NEGATIVE (NEGATIVE); GC DNA AMPLIFICATION NEGATIVE (NEGATIVE)
[2018-08-01 10:38] LABS: HIV 1&2 SCREEN CENTAUR NEGATIVE (NEGATIVE)
== END ==
LOC: M SFHCWAGY 13:27
PROVIDERS: ATTEND Nurse Practitioner Women's Health
DX: Z11.4 Encounter for screening for human immunodeficiency virus [HIV] (principal); Z11.3 Encounter for screening for infections with a predominantly sexual mode of transmission

== ENCOUNTER → 2018-09-10 | Outpatient (RCR) | payer OTHER | LOC: M PT 08-26 10:40 | PROVIDERS: ATTEND Physical Medicine & Rehabilitation | DX: Z47.89 Encounter for other orthopedic aftercare (principal); M47.812 Spondylosis without myelopathy or radiculopathy, cervical region; M48.02 Spinal stenosis, cervical region ==

== ENCOUNTER 2018-10-06 14:53 | Outpatient (RCR) | payer OTHER | END 2018-10-11 | LOC: M PT 14:53 | PROVIDERS: ATTEND Physical Medicine & Rehabilitation | DX: Z47.89 Encounter for other orthopedic aftercare (principal); M48.02 Spinal stenosis, cervical region; M47.812 Spondylosis without myelopathy or radiculopathy, cervical region ==

== ENCOUNTER 2018-10-20 11:30 | Outpatient (RCR) | payer OTHER | END 2018-11-10 | LOC: M PT 11:30 | PROVIDERS: ATTEND Physical Medicine & Rehabilitation | DX: Z47.89 Encounter for other orthopedic aftercare (principal); M47.812 Spondylosis without myelopathy or radiculopathy, cervical region; M48.02 Spinal stenosis, cervical region ==

== ENCOUNTER 2018-12-08 08:33 | Outpatient (RCR) | payer OTHER | END 2018-12-11 | disposition home or self-care (01) | LOC: M PT 08:33 | PROVIDERS: ATTEND Physical Medicine & Rehabilitation | DX: Z47.89 Encounter for other orthopedic aftercare (principal); M48.02 Spinal stenosis, cervical region; M47.812 Spondylosis without myelopathy or radiculopathy, cervical region; M50.320 Other cervical disc degeneration, mid-cervical region, unspecified level ==

== ENCOUNTER 2019-04-21 16:45 | Emergency (ER) | payer OTHER ==
[~2019-04-21] VITALS: Ht 149.9 cm; Wt 54.6 kg
[~2019-04-21 16:45] MED LIST changes: +CLON0.5T2 PO; -CLON0.5T8 PO; +ONDA-83 SL; -ONDA4TAB5 SL; -SIMV20TA2 PO; +SIMV20TA22 PO; -SIMV40TA2 PO; +SIMV40TA20 PO; -SULF1TAB72 PO; +SULF400T14 PO
[2019-04-21] MEDS ORDERED: LORA0.5T5 PO (16:58)
[2019-04-21] MEDS ORDERED: BACL10TA8 (16:58)
[2019-04-21] MEDS ORDERED: CODE30TA PO ×2 (17:14→18:11)
--- NOTE | 2019-04-21 18:02 | REP ---
HISTORY: Pain after trauma. COMPARISON: 08/29/2014 There is a distal fibular fracture with associated soft tissue swelling. The mortise is intact. Electronically Signed by Bunny Roblero DO 04/21/2019 07:30 P
[2019-04-21 18:13] VITALS: BP 130/83
[2019-04-28] MEDS ORDERED: ZOFR4TAB16 PO (12:19)
[2019-04-28] MEDS ORDERED: MULTCAP PO (12:22)
== END 2019-04-21 18:15 | disposition home or self-care (01) ==
LOC: M ED 16:45
DX: S89.301A Unspecified physeal fracture of lower end of right fibula, initial encounter for closed fracture (principal); W18.49XA Other slipping, tripping and stumbling without falling, initial encounter; Y92.099 Unspecified place in other non-institutional residence as the place of occurrence of the external cause; Y93.9 Activity, unspecified; Y99.9 Unspecified external cause status; I10 Essential (primary) hypertension; E78.5 Hyperlipidemia, unspecified; F20.9 Schizophrenia, unspecified; Z79.899 Other long term (current) drug therapy; Z88.6 Allergy status to analgesic agent; Z88.8 Allergy status to other drugs, medicaments and biological substances

== ENCOUNTER 2019-04-29 11:04 | Day surgery (SDC) | payer OTHER ==
[~2019-04-29] VITALS: Ht 147.3 cm; Wt 58.1 kg
[~2019-04-29 11:04] MED LIST changes: +BACL10TA8; +CODE30TA PO; +LIDOCAINE 2% INJ 100 MG/5 ML SDV (FOR ANES.) As Ordered ONE; +LORA0.5T5 PO; +LR 1,000 ML IV ONE; +MIDAZOLAM INJ 2 MG/2 ML VIAL (J2250) As Ordered ONE; +MULTCAP PO; +ONDANSETRON 4MG/2ML VIAL (J2405) As Ordered ONE; +ceFAZolin SOD 2 GM in IV 1 EA IV ONE; +dexameTHASONE 4 MG/ML 1ML VIAL (J1100) As Ordered ONE; +fentaNYL 100 MCG/2 ML INJECTION (J3010) As Ordered ONE; +propofoL 200 MG/20 ML VIAL As Ordered ONE
[2019-04-29] MEDS ORDERED: LIDOCAINE 1% MDV 20ML VIAL ONE (11:05)
[2019-04-29] MEDS ORDERED: ROPIvacaine 0.5% 30 ML INJECTION (J2795 PER 1MG) ONE (11:05)
[2019-04-29] MEDS ORDERED: dexameTHASONE 10 MG/1 ML VIAL PRES.FREE (J1100) ONE (11:05)
[2019-04-29] MEDS ORDERED: SCOPOLAMINE 1MG TRANSDERMAL PATCH As Ordered ONE (11:58)
[2019-04-29] MEDS ORDERED: MIDAZOLAM INJ 2 MG/2 ML VIAL (J2250) As Ordered ONE (12:10)
[2019-04-29] MEDS ORDERED: fentaNYL 100 MCG/2 ML INJECTION (J3010) As Ordered ONE (12:11)
[2019-04-29] MEDS ORDERED: SCOPOLAMINE 1MG TRANSDERMAL PATCH TOP ONE (12:15)
[2019-04-29] MEDS ORDERED: MIDAZOLAM INJ 2 MG/2 ML VIAL (J2250) IV ONE (13:00)
[2019-04-29] MEDS ORDERED: fentaNYL 100 MCG/2 ML INJECTION (J3010) IV ONE (13:00)
[2019-04-29] MEDS ORDERED: KETOROLAC 60 MG/2 ML VIAL (J1885) As Ordered ONE (14:01)
[2019-04-29] MEDS ORDERED: ONDANSETRON 4MG/2ML VIAL (J2405) As Ordered ONE (15:41)
--- NOTE | 2019-04-29 15:58 | REP ---
C-ARM VIEWS RIGHT ANKLE: Multiple C-arm views right ankle performed during placement of a metallic plate and screws in the distal fibula. The osseous structures are well aligned. Ankle mortise appears anatomic. 51 seconds of fluoroscopy time utilized. Electronically Signed by Wally Chavez MD 04/29/2019 04:08 P
[2019-04-29] MEDS ORDERED: LR 1,000 ML IV SCH ×2 (16:00)
[2019-04-29] MEDS ORDERED: HYDROMORPHONE HCL 0.5 MG/ 0.5 ML SYRINGE (J1170 PER 1) IV PRN (16:00)
[2019-04-29] MEDS ORDERED: MIDAZOLAM INJ 2 MG/2 ML VIAL (J2250) IV SCH (16:00)
[2019-04-29] MEDS ORDERED: ONDANSETRON 4MG/2ML VIAL (J2405) IV PRN (16:00)
[2019-04-29] MEDS ORDERED: fentaNYL 100 MCG/2 ML INJECTION (J3010) IV PRN (16:00)
[2019-04-29] MEDS ORDERED: oxyCODONE 5MG TAB PO PRN (16:00)
[2019-04-29 16:44] VITALS: BP 128/84
[2019-04-29] MEDS ORDERED: LORazepam 0.5 MG TAB PO PRN (20:00)
--- NOTE | 2019-04-29 20:18 | RO ---
DATE OF PROCEDURE: 04/29/2019 PREPROCEDURE DIAGNOSIS: Right ligamentous SER4 ankle fracture. POSTPROCEDURE DIAGNOSIS: Right ligamentous SER4 ankle fracture. OPERATIVE PROCEDURE: Open-reduction internal fixation right ankle. SURGEON: Tila Fleming MD MISSIONARY COORDINATOR: JULIO Madera ANESTHESIA: Laryngeal mask airway (LMA) and popliteal nerve block. ESTIMATED BLOOD LOSS: 25 mL IMPLANTS: Arthrex locking plate and associated screws. COMPLICATIONS: None. CONDITION: Stable to recovery. INDICATION: Martinez Klein is a 43-year-old female who sustained a right ankle fracture status post mechanical fall. Radiographs from the office showed unstable nature of the fracture. Risks and benefits of surgery were discussed with the patient in detail and included but are not limited to infection, damage to nerves and blood vessels, continued pain and stiffness, need for additional procedures. Informed consent was obtained in the office. DESCRIPTION OF PROCEDURE: The patient was met in the holding area where her right lower extremity was marked at the correct operative side. She was placed in the supine position in the operating room. Bony prominences were all padded. A well-padded tourniquet was placed in the right upper thigh. Antibiotics were given less than 60 minutes prior to incision. Right lower extremity underwent a chlorhexidine scrub. An official time-out was held where the correct patient, operative side, and operative procedure were verified. The right lower extremity was exsanguinated and tourniquet was inflated to 250 mL of mercury. An incision was made over the posterolateral aspect of the fibula. Careful dissection was performed at the level of the fracture. The fracture was then cleaned of hematoma and debris. Following this, reduction was obtained with a pointed reduction clamp. A 3.5 mm lag screw was placed across the fracture site. This held the fracture initially, however, unfortunately towards the end of the case, the area where the screw exited was starting to fracture and the lag screw did start backing out so this was removed. I initially used a 1/3 tubular plate, however, was having difficulty getting any sufficient bites distally with 4.0 cancellus screws due to the poor bone quality. Given this, I did switch to an Arthrex walking plate. The fracture reduction and placement of the plate was confirmed on AP, lateral and mortise fluoroscopic views. Plate was secured to distally with 2.0 locking screws and proximally with 3.5 cortical screws. An external rotation stress test was performed as well as a cotton test and there was no further instability to the ankle mortise. Final x-rays were performed and reduction and hardware placement were found to be satisfactory. Copious irrigation was performed. The periosteum was closed over the plate. Subcutaneous tissues were closed with #3-0 Vicryl and skin was closed using #3.0 nylon. A well-padded dressing was applied followed by a cast. The patient was extubated and transferred to the recovery room in stable condition. PLAN: The patient will be on aspirin for DVT prophylaxis. She will be nonweightbearing in the right lower extremity for 6 weeks. I will see her back in two weeks for a cast change and suture removal.
[2019-04-29 20:22] VITALS: BP 128/83
[2019-04-30] MEDS: oxyCODONE 5MG TAB PO PRN ×3 (01:53→13:22)
[2019-04-30] MEDS: ONDANSETRON 4MG/2ML VIAL (J2405) IV PRN ×3 (01:53→13:22)
[2019-04-30] MEDS ORDERED: OXYC-517 PO ×2 (05:38→06:40)
[2019-04-30 06:02] VITALS: BP 108/72
[2019-04-30] MEDS ORDERED: ASPI81TA21 PO (07:54)
[2019-04-30] MEDS ORDERED: ASPIRIN 81 MG ENTERIC TAB PO SCH (09:00)
== END 2019-04-30 14:25 | disposition home or self-care (01) ==
LOC: M SDC 11:04 → M MS5PR 16:30 → M SDC 04-30 14:25
PROVIDERS: ATTEND Orthopaedic Surgery
DX: S82.891A Other fracture of right lower leg, initial encounter for closed fracture (principal); W01.0XXA Fall on same level from slipping, tripping and stumbling without subsequent striking against object, initial encounter; Y92.89 Other specified places as the place of occurrence of the external cause; Y93.9 Activity, unspecified; Y99.9 Unspecified external cause status; E78.5 Hyperlipidemia, unspecified; F41.9 Anxiety disorder, unspecified; F32.9 Major depressive disorder, single episode, unspecified; Z79.899 Other long term (current) drug therapy; Z88.8 Allergy status to other drugs, medicaments and biological substances
CPT/HCPCS: 27792; 64445; 76000; 96374; 96376; C1713; J0690; J1100; J1885; J2250; J2405; J2795; J3010

== ENCOUNTER 2019-07-10 11:52 | Outpatient (RCR) | payer OTHER ==
[~2019-07-10 11:52] MED LIST changes: +ASPI81TA21 PO; -LIDOCAINE 2% INJ 100 MG/5 ML SDV (FOR ANES.) As Ordered ONE; -LR 1,000 ML IV ONE; -MIDAZOLAM INJ 2 MG/2 ML VIAL (J2250) As Ordered ONE; -ONDANSETRON 4MG/2ML VIAL (J2405) As Ordered ONE; +OXYC-517 PO; -ceFAZolin SOD 2 GM in IV 1 EA IV ONE; -dexameTHASONE 4 MG/ML 1ML VIAL (J1100) As Ordered ONE; -fentaNYL 100 MCG/2 ML INJECTION (J3010) As Ordered ONE; -propofoL 200 MG/20 ML VIAL As Ordered ONE
== END 2019-07-12 ==
LOC: M PT 11:52
PROVIDERS: ATTEND Orthopaedic Surgery
DX: S82.61XD Displaced fracture of lateral malleolus of right fibula, subsequent encounter for closed fracture with routine healing (principal)

== ENCOUNTER 2019-08-07 09:56 | Outpatient (RCR) | payer OTHER | END 2019-08-11 | LOC: M PT 09:56 | PROVIDERS: ATTEND Orthopaedic Surgery | DX: Z51.89 Encounter for other specified aftercare (principal); S82.61XD Displaced fracture of lateral malleolus of right fibula, subsequent encounter for closed fracture with routine healing ==

== ENCOUNTER 2019-08-31 10:42 | Outpatient (RCR) | payer OTHER | END 2019-09-11 | LOC: M PT 10:42 | PROVIDERS: ATTEND Orthopaedic Surgery | DX: S82.61XD Displaced fracture of lateral malleolus of right fibula, subsequent encounter for closed fracture with routine healing (principal); X58.XXXD Exposure to other specified factors, subsequent encounter; Y92.9 Unspecified place or not applicable ==

== ENCOUNTER → 2019-09-08 | Outpatient (CLI) | payer OTHER ==
--- NOTE | 2019-10-02 07:29 | REPMRS ---
Patient History The patient states she had a clinical breast exam in 08/2019. Family history of breast cancer at age 35 in mother, breast cancer at age 25 in maternal half sister, breast cancer at age 35 in maternal grandmother, breast cancer under age 50 in maternal aunt, breast cancer under age 50 in maternal aunt, prostate cancer in paternal grandfather. No Hormone Replacement Therapy Digital Woman Screen Mammo: September 08, 2019 - Exam #: [id number] Bilateral CC and MLO view(s) were taken. Technologist: Lennie White, Technologist Prior study comparison: July 31, 2018, bilateral digital woman screen mammo performed at [facility]. June 14, 2017, digital woman screen mammo performed at [facility]. June 13, 2016, digital woman screen mammo performed at [facility]. FINDINGS: The breast tissue is heterogeneously dense. This may lower the sensitivity of mammography. The Volpara volumetric breast density category is: C. There is a moderate amount of heterogeneously dense fibroglandular tissue which is fairly symmetric. There is no interval development of dominant mass, architectural distortion, or grouped microcalcification typical of malignancy. There has been no change in the appearance of the mammogram from the prior studies. 3-D tomosynthesis shows no additional findings. Report was delayed due to a protracted computer network disruption experienced by this facility. Assessment: BI-RADS/ACR category 1 mammogram. Negative Mammogram. Recommendation Breast MRI of both breasts in 6 months. Routine screening mammogram of both breasts in 1 year (for women over age 40). This patient's Lifetime Breast Cancer RIsk is estimated at 37.8 %. Annual screening Breast MRI scanniing is recommended for patient's whose lifetime risk assessment is over 20%. This mammogram was interpreted with the aid of an FDA-approved computer-aided dectection system. Electronically Signed By: Dayne Potter MD 10/02/19 0728
== END ==
LOC: M WHC 05:38
PROVIDERS: ATTEND Nurse Practitioner Women's Health
DX: Z12.31 Encounter for screening mammogram for malignant neoplasm of breast (principal); Z80.3 Family history of malignant neoplasm of breast

== ENCOUNTER → 2020-04-01 | Outpatient (REF) | payer OTHER ==
[~2020-04-01] MED LIST changes: -CLIN150C14 PO; +CLIN150C15 PO; -LISI-538 PO; +LISI10TA22 PO; -LISI10TA4 PO; +LISI20TA33 PO
[2020-04-01 17:16] LABS: BASO % 0.2 % (0.0-1.0); EOS # 0.2 10^3/uL (0.0-0.5); EOS % 1.6 % (0.0-3.0); HEMATOCRIT 43.3 % (36.0-47.0); HEMOGLOBIN 14.4 g/dl (12.0-15.5); LYMPH # 3.1 10^3/uL (1.5-5.0); LYMPH % 32.3 % (24.0-44.0); MEAN CORPUSCULAR HEMOGLOBIN 30.1 pg (27.0-33.0); MEAN CORPUSCULAR HGB CONC 33.3 g/dl (32.0-36.5); MEAN CORPUSCULAR VOLUME 90.6 fl (80.0-96.0); MONO # 0.6 10^3/uL (0.0-0.8); MONO % 6.6 % (2.0-8.0); NEUTROPHILS # 5.6 10^3/uL (1.5-8.5); NEUTROPHILS % 58.9 % (36.0-66.0); PLATELET COUNT, AUTOMATED 336 10^3/uL (150-450); RED BLOOD COUNT 4.78 10^6/uL (4.00-5.40); WHITE BLOOD COUNT 9.5 10^3/uL (4.0-10.0)
[2020-04-01 17:22] LABS: HEMOGLOBIN A1c 5.3 %
[2020-04-01 17:37] LABS: ALBUMIN 4.2 GM/DL (3.2-5.2); ALT/SGPT 26 U/L (12-78); BILIRUBIN,TOTAL 0.8 MG/DL (0.2-1.0); BLOOD UREA NITROGEN 11 MG/DL (7-18); CALCIUM LEVEL 9.1 MG/DL (8.5-10.1); CARBON DIOXIDE LEVEL 24 MEQ/L (21-32); CHLORIDE LEVEL 105 MEQ/L (98-107); CHOLESTEROL LEVEL 349 MG/DL (<200); CHOLESTEROL RISK RATIO 6.843 (<5); CREATININE FOR GFR 0.82 MG/DL (0.55-1.30); GLOMERULAR FILTRATION RATE > 60.0 (>58); GLUCOSE, FASTING 83 MG/DL (70-100); HDL CHOLESTEROL 51 MG/DL (>40); LDL CHOLESTEROL 274 MG/DL (<100); NON-HDL-C 298 MG/DL; POTASSIUM SERUM 4.6 MEQ/L (3.5-5.1); SODIUM LEVEL 137 MEQ/L (136-145); TOTAL PROTEIN 7.4 GM/DL (6.4-8.2); TRIGLYCERIDES LEVEL 119 MG/DL (<150)
== END ==
LOC: M LAB REF 16:15
PROVIDERS: ATTEND Physician Assistant
DX: Z79.899 Other long term (current) drug therapy (principal)

== ENCOUNTER → 2020-10-11 | Outpatient (CLI) | payer OTHER ==
[~2020-10-11] MED LIST changes: +ARIP10TA32 PO; -ARIP1TAB PO; -CLIN150C15 PO; +CLIN150C17 PO
--- NOTE | 2020-10-11 15:39 | REPMRS ---
Patient History The patient states she had a clinical breast exam in September 2020. Family history of breast cancer at age 35 in mother, breast cancer at age 25 in maternal half sister, breast cancer at age 35 in maternal grandmother, breast cancer under age 50 in maternal aunt, breast cancer under age 50 in maternal aunt, prostate cancer in paternal grandfather. No Hormone Replacement Therapy Patient states no breast complaints today. Patient has signed MRS History Sheet. Digital Woman Screen Mammo: October 11, 2020 - Exam #: [id number] Bilateral CC and MLO view(s) were taken. Technologist: RT Albert Prior study comparison: September 08, 2019, bilateral digital woman screen mammo performed at [facility]. July 31, 2018, bilateral digital woman screen mammo performed at [facility]. June 14, 2017, digital woman screen mammo performed at [facility]. FINDINGS: The breast tissue is heterogeneously dense. This may lower the sensitivity of mammography. The Volpara volumetric breast density category is: C. There is a moderate amount of heterogeneously dense fibroglandular tissue which is fairly symmetric. There is no interval development of dominant mass, architectural distortion, or grouped microcalcification typical of malignancy. There has been no change in the appearance of the mammogram from the prior studies. 3-D tomosynthesis shows no additional findings. Assessment: BI-RADS/ACR category 1 mammogram. Negative Mammogram. Recommendation Breast MRI of both breasts in 6 months. Routine screening mammogram of both breasts in 1 year (for women over age 40). This patient's [facility] Lifetime Breast Cancer RIsk is estimated at 36.7 %. Patients whose estimated lifetime breast cancer risk assessment is greater than 20% merit annual screening breast MRI scanning in addition to annual mammography. This mammogram was interpreted with the aid of an FDA-approved computer-aided dectection system. Electronically Signed By: Dayne Potter MD 10/11/20 2619
== END ==
LOC: M WHC 13:40
PROVIDERS: ATTEND Nurse Practitioner Women's Health
DX: Z12.31 Encounter for screening mammogram for malignant neoplasm of breast (principal)

== ENCOUNTER → 2020-10-14 | Outpatient (CLI) | payer OTHER ==
[2020-10-14 15:38] LABS: HEPATITIS A ANTIBODY IGM NEGATIVE (NEGATIVE); HEPATITIS B CORE ANTIBODY IGM NEGATIVE (NEGATIVE); HEPATITIS B SURFACE ANTIGEN NEGATIVE (NEGATIVE); HIV 1&2 SCREEN CENTAUR NEGATIVE (NEGATIVE)
== END ==
LOC: M PLALAB 09:23
PROVIDERS: ATTEND Nurse Practitioner Women's Health
DX: Z11.3 Encounter for screening for infections with a predominantly sexual mode of transmission (principal)

== ENCOUNTER 2021-07-16 06:55 | Emergency (ER) | payer OTHER ==
[~2021-07-16] VITALS: Ht 144.8 cm; Wt 61.0 kg
[~2021-07-16 06:55] MED LIST changes: -FLUC150T PO; +FLUC150T9 PO; +PARO25TA12 PO; -PAXI25TA13 PO
[2021-07-16] MEDS ORDERED: predniSONE 20 MG TAB PO ONE (08:05)
[2021-07-16] MEDS ORDERED: PRED20TA PO (08:58)
[2021-07-16 09:04] VITALS: BP 138/92
== END 2021-07-16 09:11 | disposition home or self-care (01) ==
LOC: M ED 06:55
DX: R21 Rash and other nonspecific skin eruption (principal); Z88.6 Allergy status to analgesic agent; Z88.8 Allergy status to other drugs, medicaments and biological substances
CPT/HCPCS: 99283; J7512

== ENCOUNTER → 2021-09-21 | Outpatient (REF) | payer OTHER, MEDICAID ==
[~2021-09-21] MED LIST changes: +PRED20TA PO; +SIMV-253 PO; -ZOCO20TA PO
[2021-09-21 19:44] LABS: CHOLESTEROL RISK RATIO 5.744 (<5)
== END ==
LOC: M LAB REF 16:16
PROVIDERS: ATTEND Nurse Practitioner Family
DX: E78.5 Hyperlipidemia, unspecified (principal)

== ENCOUNTER → 2022-03-07 | Outpatient (CLI) | payer OTHER | LOC: M RAD 12:31 | PROVIDERS: ATTEND Nurse Practitioner Family | DX: R23.9 Unspecified skin changes (principal) ==

== ENCOUNTER → 2022-04-24 | Outpatient (REF) | payer OTHER ==
[~2022-04-24] MED LIST changes: +SIMV-254 PO; -ZOCO40TA PO
[2022-04-24 12:08] LABS: BASO % 0.4 % (0.0-1.0); EOS # 0.2 10^3/uL (0.0-0.5); EOS % 1.9 % (0.0-3.0); HEMATOCRIT 41.4 % (36.0-47.0); HEMOGLOBIN 13.8 g/dl (12.0-15.5); LYMPH # 1.9 10^3/uL (1.5-5.0); LYMPH % 22.1 % (24.0-44.0); MEAN CORPUSCULAR HEMOGLOBIN 29.9 pg (27.0-33.0); MEAN CORPUSCULAR HGB CONC 33.3 g/dl (32.0-36.5); MEAN CORPUSCULAR VOLUME 89.8 fl (80.0-96.0); MONO # 0.5 10^3/uL (0.0-0.8); MONO % 6.4 % (2.0-8.0); NEUTROPHILS # 5.8 10^3/uL (1.5-8.5); PLATELET COUNT, AUTOMATED 330 10^3/uL (150-450); RED BLOOD COUNT 4.61 10^6/uL (4.00-5.40); WHITE BLOOD COUNT 8.4 10^3/uL (4.0-10.0)
[2022-04-24 12:46] LABS: ALBUMIN 3.9 G/DL (3.2-5.2); ALKALINE PHOSPHATASE 62 U/L (46-116); ALT/SGPT 21 U/L (7.0-40); AST/SGOT 23 U/L (<34); BILIRUBIN,TOTAL 1.3 MG/DL (0.3-1.2); BLOOD UREA NITROGEN 10 MG/DL (9-23); CARBON DIOXIDE LEVEL 23 MMOL/L (20-31); CHLORIDE LEVEL 105 MMOL/L (98-107); CHOLESTEROL LEVEL 271 MG/DL (<200); CHOLESTEROL RISK RATIO 4.88 (<5); CREATININE FOR GFR 0.65 MG/DL (0.55-1.30); FREE T4 0.92 NG/DL (0.89-1.76); GLOMERULAR FILTRATION RATE > 60.0 (>58); GLUCOSE, FASTING 95 MG/DL (60-100); HDL CHOLESTEROL 55.5 MG/DL (>40); LDL CHOLESTEROL 200.9 MG/DL (<100); NON-HDL-C 215.5 MG/DL; POTASSIUM SERUM 4.3 MMOL/L (3.5-5.1); SODIUM LEVEL 137 MMOL/L (136-145); TOTAL 25(OH) VITAMIN D 26.5 NG/ML (20.0-100.0); TOTAL PROTEIN 6.8 G/DL (5.7-8.2); TRIGLYCERIDES LEVEL 73 MG/DL (<150)
[2022-04-24 13:57] LABS: HEMOGLOBIN A1c 5.3 % (4.0-6.0)
== END ==
LOC: M LAB REF 11:04
PROVIDERS: ATTEND Nurse Practitioner Family
DX: Z13.228 Encounter for screening for other metabolic disorders (principal)

== ENCOUNTER → 2022-06-29 | Outpatient (CLI) | payer OTHER ==
[2022-06-29 18:37] LABS: HEPATITIS B SURFACE ANTIGEN NEGATIVE (NEGATIVE)
[2022-06-29 18:50] LABS: HIV 1&2 SCREEN NEGATIVE (NEGATIVE)
[2022-06-29 18:54] LABS: GC DNA AMPLIFICATION NEGATIVE (NEGATIVE)
[2022-06-29 18:58] LABS: HEPATITIS B CORE ANTIBODY IGM NEGATIVE (NEGATIVE)
[2022-06-29 18:59] LABS: HEPATITIS C VIRUS ABY INDEX < 0.0 INDEX (<0.8)
[2022-06-29 19:44] LABS: GC DNA AMPLIFICATION NEGATIVE (NEGATIVE)
== END ==
LOC: M PLALAB 15:35
PROVIDERS: ATTEND Nurse Practitioner Family
DX: Z11.3 Encounter for screening for infections with a predominantly sexual mode of transmission (principal); Z12.4 Encounter for screening for malignant neoplasm of cervix

== ENCOUNTER → 2022-06-29 | Outpatient (CLI) | payer OTHER | LOC: M WHC 14:32 | PROVIDERS: ATTEND Nurse Practitioner Family | DX: Z12.31 Encounter for screening mammogram for malignant neoplasm of breast (principal) ==

== ENCOUNTER 2022-09-20 17:13 | Inpatient (IN) | payer OTHER ==
[~2022-09-20] VITALS: Ht 144.8 cm; Wt 56.1 kg
[2022-09-20] MEDS ORDERED: MED REC IN PROGRESS XX SCH (19:00)
[2022-09-20] MEDS ORDERED: VITA200012 PO (19:12)
[2022-09-20] MEDS ORDERED: FENO160T10 PO (19:13)
[2022-09-20] MEDS ORDERED: HALO0.052 TOP (19:16)
[2022-09-20] MEDS ORDERED: HOME MED LIST COMPLETE! XX SCH (19:20)
[2022-09-20 19:40] LABS: HEMATOCRIT 40.5 % (36.0-47.0); HEMOGLOBIN 13.7 g/dl (12.0-15.5); MEAN CORPUSCULAR HEMOGLOBIN 30.3 pg (27.0-33.0); MEAN CORPUSCULAR HGB CONC 33.8 g/dl (32.0-36.5); MEAN CORPUSCULAR VOLUME 89.6 fl (80.0-96.0); PLATELET COUNT, AUTOMATED 293 10^3/uL (150-450); RED BLOOD COUNT 4.52 10^6/uL (4.00-5.40); WHITE BLOOD COUNT 13.4 10^3/uL (4.0-10.0)
[2022-09-20 20:07] LABS: ALBUMIN 3.8 G/DL (3.2-5.2); ALKALINE PHOSPHATASE 60 U/L (46-116); ALT/SGPT 19 U/L (7.0-40); AST/SGOT 16 U/L (<34); BILIRUBIN,DIRECT 0.2 MG/DL (<0.4); BILIRUBIN,TOTAL 0.9 MG/DL (0.3-1.2); BLOOD UREA NITROGEN 10 MG/DL (9-23); CALCIUM LEVEL 9.2 MG/DL (8.5-10.1); CARBON DIOXIDE LEVEL 24 MMOL/L (20-31); CHLORIDE LEVEL 106 MMOL/L (98-107); CREATININE FOR GFR 0.69 MG/DL (0.55-1.30); GLOMERULAR FILTRATION RATE > 60.0 (>58); GLUCOSE, FASTING 93 MG/DL (60-100); POTASSIUM SERUM 4.2 MMOL/L (3.5-5.1); SALICYLATE LEVEL < 3.0 MG/DL (<30); SODIUM LEVEL 139 MMOL/L (136-145); TOTAL PROTEIN 6.8 G/DL (5.7-8.2)
[2022-09-20 20:09] LABS: ETHYL ALCOHOL (ETHANOL) < 0.003 % (0.000-0.010); THYROID STIMULATING HORMONE 1.321 uIU/ML (0.55-4.78)
[2022-09-20 20:10] LABS: ACETAMINOPHEN LEVEL < 2.0 UG/ML (10.0-20.0)
[2022-09-20 20:48] LABS: AMPHETAMINES LEVEL URINE NEGATIVE (NEGATIVE); PHENCYCLIDINE URINE NEGATIVE (NEGATIVE)
[2022-09-20 20:49] LABS: BARBITURATES URINE NEGATIVE (NEGATIVE); BENZODIAZEPINES URINE NEGATIVE (NEGATIVE); COCAINE METABOLITE URINE NEGATIVE (NEGATIVE); METHADONE URINE NEGATIVE (NEGATIVE); OPIATES URINE NEGATIVE (NEGATIVE)
[2022-09-20 20:50] LABS: CANNABINOIDS URINE POSITIVE (NEGATIVE)
[2022-09-20] MEDS ORDERED: ONDANSETRON 4MG TAB PO PRN (21:50)
[2022-09-20] MEDS ORDERED: MAALOX 30 ML SUSP *UDC PO PRN (21:55)
[2022-09-20] MEDS ORDERED: MOM 30ML SUSPENSION UDC PO PRN (21:55)
[2022-09-20] MEDS ORDERED: IBUPROFEN 400MG TAB PO PRN (21:55)
[2022-09-20] MEDS ORDERED: traZODone 50 MG TAB PO PRN (21:55)
[2022-09-20] MEDS ORDERED: NICOTINE 21MG/24HR 1 EA TRANSDERMAL TD PRN (21:55)
[2022-09-20] MEDS ORDERED: diphenhydrAMINE 25MG CAP PO PRN (21:55)
[2022-09-20] MEDS: MIRTAZAPINE 7.5MG PER 1/2 TABLET PO SCH (22:07)
[2022-09-20] MEDS: ARIPiprazole 10 MG TAB PO SCH (22:07)
[2022-09-20] MEDS: LORazepam 0.5 MG TAB PO PRN (23:58)
[2022-09-21 00:20] VITALS: BP 134/81; TEMP 98.7; O2SAT 97
[2022-09-21 06:41] VITALS: BP 123/71; TEMP 97.4; O2SAT 99
[2022-09-21] MEDS: ARIPiprazole 10 MG TAB PO SCH ×2 (09:21→20:49)
[2022-09-21 18:14] VITALS: BP 148/82; TEMP 97.6; O2SAT 99
[2022-09-21] MEDS: MIRTAZAPINE 7.5MG PER 1/2 TABLET PO SCH (20:49)
[2022-09-22] MEDS: LORazepam 0.5 MG TAB PO PRN (05:43)
[2022-09-22 06:28] VITALS: BP 138/84; TEMP 98.8; O2SAT 99
[2022-09-22 08:04] LABS: CHOLESTEROL RISK RATIO 5.81 (<5); HDL CHOLESTEROL 53.7 MG/DL (>40); LDL CHOLESTEROL 235.5 MG/DL (<100); NON-HDL-C 258.3 MG/DL
[2022-09-22] MEDS: ARIPiprazole 10 MG TAB PO SCH ×2 (08:48→20:49)
[2022-09-22] MEDS: FENOFIBRATE 145MG TABLET (TRICOR) PO SCH (08:48)
[2022-09-22] MEDS: VITAMIN D 1,000 INTERNATIONAL UNITS TABLET PO SCH (08:48)
[2022-09-22 09:49] LABS: HEMOGLOBIN A1c 5.3 % (4.0-6.0)
[2022-09-22 18:25] VITALS: BP 136/85; TEMP 98; O2SAT 99
[2022-09-22] MEDS: HALOBETASOL PROPION 0.05% OINT 15 GM TOP PRN (19:55)
[2022-09-22] MEDS: MIRTAZAPINE 7.5MG PER 1/2 TABLET PO SCH (20:49)
[2022-09-23 06:23] VITALS: BP 124/62; TEMP 98.2; O2SAT 99
[2022-09-23] MEDS: LORazepam 0.5 MG TAB PO PRN (06:52)
[2022-09-23] MEDS: VITAMIN D 1,000 INTERNATIONAL UNITS TABLET PO SCH (07:53)
[2022-09-23] MEDS: ARIPiprazole 10 MG TAB PO SCH ×2 (07:54→20:10)
[2022-09-23] MEDS: HALOBETASOL PROPION 0.05% OINT 15 GM TOP PRN (07:54)
[2022-09-23] MEDS: FENOFIBRATE 145MG TABLET (TRICOR) PO SCH (07:54)
[2022-09-23 18:07] VITALS: BP 138/86; TEMP 97.4; O2SAT 96
[2022-09-23] MEDS: MIRTAZAPINE 7.5MG PER 1/2 TABLET PO SCH (20:10)
[2022-09-24 06:48] VITALS: BP 109/68; TEMP 98; O2SAT 97
[2022-09-24] MEDS: FENOFIBRATE 145MG TABLET (TRICOR) PO SCH (08:07)
[2022-09-24] MEDS: VITAMIN D 1,000 INTERNATIONAL UNITS TABLET PO SCH (08:07)
[2022-09-24] MEDS: LORazepam 0.5 MG TAB PO PRN (08:08)
[2022-09-24] MEDS: HALOBETASOL PROPION 0.05% OINT 15 GM TOP PRN (08:08)
[2022-09-24] MEDS: ARIPiprazole 10 MG TAB PO SCH ×2 (08:08→20:15)
[2022-09-24 18:17] VITALS: BP 144/86; TEMP 97.8; O2SAT 97
[2022-09-24] MEDS: MIRTAZAPINE 7.5MG PER 1/2 TABLET PO SCH (20:15)
[2022-09-25 06:48] VITALS: BP 109/67; TEMP 97.7; O2SAT 95
[2022-09-25] MEDS: VITAMIN D 1,000 INTERNATIONAL UNITS TABLET PO SCH (07:55)
[2022-09-25] MEDS: ARIPiprazole 10 MG TAB PO SCH (07:55)
[2022-09-25] MEDS: FENOFIBRATE 145MG TABLET (TRICOR) PO SCH (07:55)
== END 2022-09-25 09:48 | disposition home or self-care (01) | DRG 750 ==
LOC: M ED 17:13 → M ED INP 21:51 → M PSY 23:38
PROVIDERS: ADMIT Psychiatry & Neurology Psychiatry; ATTEND Student in an Organized Health Care Education/Training Program
DX: F20.9 Schizophrenia, unspecified (principal); F32.A Depression, unspecified; F41.9 Anxiety disorder, unspecified; I10 Essential (primary) hypertension; E78.5 Hyperlipidemia, unspecified; E55.9 Vitamin D deficiency, unspecified; E28.2 Polycystic ovarian syndrome; Z90.79 Acquired absence of other genital organ(s); Z56.0 Unemployment, unspecified; Z63.0 Problems in relationship with spouse or partner; Z91.51 Personal history of suicidal behavior; Z79.899 Other long term (current) drug therapy; Z88.8 Allergy status to other drugs, medicaments and biological substances; Z20.822 Contact with and (suspected) exposure to COVID-19

== ENCOUNTER 2023-01-21 06:19 | Inpatient (IN) | payer MEDICAID, OTHER ==
[~2023-01-21] VITALS: Ht 144.8 cm; Wt 54.7 kg
[~2023-01-21 06:19] MED LIST changes: +FENO160T10 PO; +HALO0.052 TOP; +VITA200012 PO
[2023-01-21 07:41] LABS: HEMATOCRIT 40.4 % (36.0-47.0); HEMOGLOBIN 13.8 g/dl (12.0-15.5); MEAN CORPUSCULAR HEMOGLOBIN 30.7 pg (27.0-33.0); MEAN CORPUSCULAR HGB CONC 34.2 g/dl (32.0-36.5); PLATELET COUNT, AUTOMATED 299 10^3/uL (150-450); RED BLOOD COUNT 4.49 10^6/uL (4.00-5.40); WHITE BLOOD COUNT 10.9 10^3/uL (4.0-10.0)
[2023-01-21 08:06] LABS: ETHYL ALCOHOL (ETHANOL) < 0.003 % (0.000-0.010)
[2023-01-21 08:08] LABS: ALBUMIN 3.8 G/DL (3.2-5.2); ALKALINE PHOSPHATASE 56 U/L (46-116); ALT/SGPT 13 U/L (7.0-40); AST/SGOT 15 U/L (<34); BILIRUBIN,DIRECT 0.3 MG/DL (<0.4); BILIRUBIN,TOTAL 1.4 MG/DL (0.3-1.2); BLOOD UREA NITROGEN 11 MG/DL (9-23); CALCIUM LEVEL 9.4 MG/DL (8.5-10.1); CARBON DIOXIDE LEVEL 21 MMOL/L (20-31); CHLORIDE LEVEL 109 MMOL/L (98-107); CREATININE FOR GFR 0.68 MG/DL (0.55-1.30); GLOMERULAR FILTRATION RATE > 60.0 (>58); GLUCOSE, FASTING 107 MG/DL (60-100); POTASSIUM SERUM 4.1 MMOL/L (3.5-5.1); SALICYLATE LEVEL < 3.0 MG/DL (<30); SODIUM LEVEL 139 MMOL/L (136-145); TOTAL PROTEIN 6.7 G/DL (5.7-8.2)
[2023-01-21 08:10] LABS: THYROID STIMULATING HORMONE 1.525 uIU/ML (0.55-4.78)
[2023-01-21] MEDS ORDERED: MED REC IN PROGRESS XX SCH (09:20)
[2023-01-21] MEDS ORDERED: ATIV1TAB10 PO (12:09)
[2023-01-21] MEDS ORDERED: HOME MED LIST COMPLETE! XX SCH (12:15)
[2023-01-21 12:22] LABS: AMPHETAMINES LEVEL URINE NEGATIVE (NEGATIVE); BENZODIAZEPINES URINE NEGATIVE (NEGATIVE)
[2023-01-21 12:23] LABS: BARBITURATES URINE NEGATIVE (NEGATIVE); COCAINE METABOLITE URINE NEGATIVE (NEGATIVE); METHADONE URINE NEGATIVE (NEGATIVE); OPIATES URINE NEGATIVE (NEGATIVE); PHENCYCLIDINE URINE NEGATIVE (NEGATIVE)
[2023-01-21 12:30] LABS: CANNABINOIDS URINE POSITIVE (NEGATIVE)
[2023-01-21] MEDS ORDERED: traZODone 50 MG TAB PO PRN (12:45)
[2023-01-21] MEDS ORDERED: MAALOX 30 ML SUSP *UDC PO PRN (12:45)
[2023-01-21] MEDS ORDERED: IBUPROFEN 400MG TAB PO PRN (12:45)
[2023-01-21] MEDS ORDERED: diphenhydrAMINE 25MG CAP PO PRN (12:45)
[2023-01-21] MEDS ORDERED: ACETAMINOPHEN TAB 650MG DOSE (2X325MG) PO PRN (12:45)
[2023-01-21] MEDS ORDERED: MOM 30ML SUSPENSION UDC PO PRN (12:45)
[2023-01-21 20:35] VITALS: BP 122/90; TEMP 98.6; O2SAT 96
[2023-01-21] MEDS ORDERED: MIRTAZAPINE 7.5MG PER 1/2 TABLET PO ONE (22:00)
[2023-01-21] MEDS ORDERED: ARIPiprazole 10 MG TAB PO ONE (22:00)
[2023-01-22 06:26] VITALS: BP 131/81; TEMP 97.9; O2SAT 99
[2023-01-22] MEDS: ARIPiprazole 10 MG TAB PO SCH ×2 (08:12→20:06)
[2023-01-22] MEDS ORDERED: ONDANSETRON 4MG ORAL DISINTEGRATING TAB PO PRN (10:55)
[2023-01-22] MEDS: LORazepam 0.5 MG TAB PO SCH (11:11)
[2023-01-22 17:40] VITALS: BP 120/88; TEMP 97.8; O2SAT 99
[2023-01-22] MEDS: FENOFIBRATE 48MG TABLET (TRICOR) PO SCH (20:06)
[2023-01-22] MEDS: MIRTAZAPINE 7.5MG PER 1/2 TABLET PO SCH (20:06)
[2023-01-22] MEDS ORDERED: FENOFIBRATE 48MG TABLET (TRICOR) PO SCH (21:00)
[2023-01-23 06:03] VITALS: BP 136/84; TEMP 97.7; O2SAT 97
[2023-01-23] MEDS: ARIPiprazole 10 MG TAB PO SCH ×2 (08:03→20:02)
[2023-01-23] MEDS: LORazepam 0.5 MG TAB PO SCH (08:03)
[2023-01-23 18:36] VITALS: BP 150/100; TEMP 99.1
[2023-01-23] MEDS: OLANZapine ORAL DISINTEGRATING TAB 5MG PO PRN (19:00)
[2023-01-23] MEDS: MIRTAZAPINE 7.5MG PER 1/2 TABLET PO SCH (20:02)
[2023-01-23] MEDS: FENOFIBRATE 48MG TABLET (TRICOR) PO SCH (20:02)
[2023-01-24 06:33] VITALS: BP 113/72; TEMP 97.9; O2SAT 95
[2023-01-24] MEDS: LORazepam 0.5 MG TAB PO SCH (08:08)
[2023-01-24] MEDS: ARIPiprazole 10 MG TAB PO SCH ×2 (08:08→20:01)
[2023-01-24 10:24] LABS: C REACTIVE PROTEIN QUANTITATIV < 0.40 MG/DL (<1.0)
[2023-01-24 10:26] LABS: BLOOD UREA NITROGEN 12 MG/DL (9-23); CALCIUM LEVEL 9.4 MG/DL (8.5-10.1); CARBON DIOXIDE LEVEL 24 MMOL/L (20-31); CHLORIDE LEVEL 106 MMOL/L (98-107); CREATININE FOR GFR 0.86 MG/DL (0.55-1.30); GLOMERULAR FILTRATION RATE > 60.0 (>58); GLUCOSE, FASTING 108 MG/DL (60-100); HEMATOCRIT 45.1 % (36.0-47.0); HEMOGLOBIN 15.2 g/dl (12.0-15.5); MEAN CORPUSCULAR HEMOGLOBIN 30.2 pg (27.0-33.0); MEAN CORPUSCULAR HGB CONC 33.7 g/dl (32.0-36.5); MEAN CORPUSCULAR VOLUME 89.5 fl (80.0-96.0); PLATELET COUNT, AUTOMATED 304 10^3/uL (150-450); POTASSIUM SERUM 4.5 MMOL/L (3.5-5.1); RED BLOOD COUNT 5.04 10^6/uL (4.00-5.40); SODIUM LEVEL 138 MMOL/L (136-145); WHITE BLOOD COUNT 7.7 10^3/uL (4.0-10.0)
[2023-01-24] MEDS: HALOBETASOL PROPION 0.05% OINT 15 GM TOP PRN (12:26)
[2023-01-24] MEDS: OLANZapine ORAL DISINTEGRATING TAB 5MG PO PRN ×2 (12:36→18:54)
[2023-01-24 17:17] VITALS: BP 139/96; TEMP 97.5; O2SAT 100
[2023-01-24] MEDS: MIRTAZAPINE 7.5MG PER 1/2 TABLET PO SCH (20:01)
[2023-01-24] MEDS: FENOFIBRATE 48MG TABLET (TRICOR) PO SCH (20:02)
[2023-01-25 06:29] VITALS: BP 106/57; TEMP 99.2; O2SAT 97
[2023-01-25] MEDS: ARIPiprazole 10 MG TAB PO SCH ×2 (08:10→20:08)
[2023-01-25] MEDS: LORazepam 0.5 MG TAB PO SCH (08:10)
[2023-01-25] MEDS: HALOBETASOL PROPION 0.05% OINT 15 GM TOP PRN ×2 (08:21→20:28)
[2023-01-25] MEDS: OLANZapine ORAL DISINTEGRATING TAB 5MG PO PRN ×2 (12:09→20:08)
[2023-01-25 16:31] VITALS: BP 120/88; TEMP 98.9; O2SAT 99
[2023-01-25] MEDS: MIRTAZAPINE 7.5MG PER 1/2 TABLET PO SCH (20:08)
[2023-01-25] MEDS: FENOFIBRATE 48MG TABLET (TRICOR) PO SCH (20:08)
[2023-01-26 06:34] VITALS: BP 142/85; TEMP 99.3; O2SAT 100
[2023-01-26] MEDS: LORazepam 0.5 MG TAB PO SCH (08:02)
[2023-01-26] MEDS: ARIPiprazole 10 MG TAB PO SCH ×2 (08:02→20:08)
[2023-01-26] MEDS: HALOBETASOL PROPION 0.05% OINT 15 GM TOP PRN ×2 (08:03→20:08)
[2023-01-26] MEDS: OLANZapine ORAL DISINTEGRATING TAB 5MG PO PRN ×2 (09:37→20:08)
[2023-01-26] MEDS: predniSONE 10MG TAB PO SCH (13:33)
[2023-01-26 16:29] VITALS: BP 128/76; TEMP 99.4; O2SAT 99
[2023-01-26] MEDS: FENOFIBRATE 48MG TABLET (TRICOR) PO SCH (20:08)
[2023-01-26] MEDS: MIRTAZAPINE 7.5MG PER 1/2 TABLET PO SCH (20:08)
[2023-01-27 06:25] VITALS: BP 118/65; TEMP 98; O2SAT 98
[2023-01-27] MEDS: HALOBETASOL PROPION 0.05% OINT 15 GM TOP PRN ×2 (08:04→19:59)
[2023-01-27] MEDS: predniSONE 10MG TAB PO SCH (08:04)
[2023-01-27] MEDS: ARIPiprazole 10 MG TAB PO SCH ×2 (08:04→19:59)
[2023-01-27] MEDS: LORazepam 0.5 MG TAB PO SCH (08:05)
[2023-01-27] MEDS: OLANZapine ORAL DISINTEGRATING TAB 5MG PO PRN ×2 (13:56→19:59)
[2023-01-27 18:06] VITALS: BP 153/80; TEMP 99.6; O2SAT 98
[2023-01-27 18:07] VITALS: BP 138/82
[2023-01-27] MEDS: MIRTAZAPINE 7.5MG PER 1/2 TABLET PO SCH (20:00)
[2023-01-27] MEDS: FENOFIBRATE 48MG TABLET (TRICOR) PO SCH (20:00)
[2023-01-28 06:34] VITALS: BP 125/60; TEMP 98.9; O2SAT 99
[2023-01-28] MEDS: LORazepam 0.5 MG TAB PO SCH (08:05)
[2023-01-28] MEDS: ARIPiprazole 10 MG TAB PO SCH (08:05)
[2023-01-28] MEDS: predniSONE 10MG TAB PO SCH (08:05)
== END 2023-01-28 09:38 | disposition home or self-care (01) | DRG 750 ==
LOC: M ED 06:19 → M ED INP 12:57 → M PSY 20:34
PROVIDERS: ADMIT Student in an Organized Health Care Education/Training Program; ATTEND Student in an Organized Health Care Education/Training Program
DX: F20.9 Schizophrenia, unspecified (principal); R17 Unspecified jaundice; F12.10 Cannabis abuse, uncomplicated; E28.2 Polycystic ovarian syndrome; D72.829 Elevated white blood cell count, unspecified; E78.5 Hyperlipidemia, unspecified; Z91.51 Personal history of suicidal behavior; Z88.8 Allergy status to other drugs, medicaments and biological substances; Z79.899 Other long term (current) drug therapy; Z63.0 Problems in relationship with spouse or partner

== ENCOUNTER → 2023-09-18 | Outpatient (CLI) | payer OTHER ==
[~2023-09-18] MED LIST changes: +ATIV1TAB10 PO; -KLON0.5T PO; +KLON0.5T8 PO; +ONDA-282 SL; +ONDA-284 PO; -ONDA4TAB6 SL; -ONDA8TAB8 PO
== END ==
LOC: M WHC 10:58
PROVIDERS: ATTEND Nurse Practitioner Women's Health
DX: Z12.31 Encounter for screening mammogram for malignant neoplasm of breast (principal)

== ENCOUNTER → 2023-09-18 | Outpatient (CLI) | payer OTHER ==
[2023-09-18 16:51] LABS: HIV 1&2 SCREEN NEGATIVE (NEGATIVE)
== END ==
LOC: M PLALAB 12:30
PROVIDERS: ATTEND Nurse Practitioner Women's Health
DX: Z11.4 Encounter for screening for human immunodeficiency virus [HIV] (principal)

== ENCOUNTER → 2023-09-25 | Outpatient (REF) | payer OTHER ==
[2023-09-25 13:53] LABS: CHOLESTEROL RISK RATIO 7.46 (<5); HDL CHOLESTEROL 35.5 MG/DL (>40); LDL CHOLESTEROL 199.3 MG/DL (<100); NON-HDL-C 229.5 MG/DL
== END ==
LOC: M LAB REF 12:37
PROVIDERS: ATTEND Nurse Practitioner Family
DX: E78.5 Hyperlipidemia, unspecified (principal)

== ENCOUNTER 2023-11-05 01:54 | Emergency (ER) | payer OTHER ==
[~2023-11-05] VITALS: Ht 144.8 cm; Wt 58.9 kg
[~2023-11-05 01:54] MED LIST changes: +GABA-1490 PO; -GABA600T4 PO
[2023-11-05 01:56] VITALS: BP 111/74; TEMP 96.6; O2SAT 96
== END 2023-11-05 03:50 | disposition left against medical advice (07) ==
LOC: M ED 01:54
DX: Z53.21 Procedure and treatment not carried out due to patient leaving prior to being seen by health care provider (principal)

== ENCOUNTER 2024-03-12 10:01 | Emergency (ER) | payer OTHER ==
[~2024-03-12] VITALS: Ht 144.8 cm; Wt 57.1 kg
[~2024-03-12 10:01] MED LIST changes: -ARIP10TA32 PO; +ARIP10TA63 PO; -HALO0.052 TOP; +HALO0.056 TOP
[2024-03-12 12:13] LABS: INR 0.95; PARTIAL THROMBOPLASTIN TIME 28.9 SECONDS (24.8-34.2)
[2024-03-12 12:23] LABS: ALBUMIN 4.3 G/DL (3.2-5.2); ALKALINE PHOSPHATASE 59 U/L (35-104); ALT/SGPT 15 U/L (7.0-40); AST/SGOT 16 U/L (<34); BILIRUBIN,DIRECT 0.1 MG/DL (<0.4); BILIRUBIN,TOTAL 0.7 MG/DL (0.3-1.2); BLOOD UREA NITROGEN 7 MG/DL (9-23); CALCIUM LEVEL 9.6 MG/DL (8.5-10.1); CARBON DIOXIDE LEVEL 24 MMOL/L (20-31); CHLORIDE LEVEL 106 MMOL/L (98-107); CREATININE FOR GFR 0.74 MG/DL (0.55-1.30); GLOMERULAR FILTRATION RATE > 60.0 (>58); GLUCOSE, FASTING 101 MG/DL (60-100); POTASSIUM SERUM 4.6 MMOL/L (3.5-5.1); SODIUM LEVEL 140 MMOL/L (136-145); TOTAL PROTEIN 7.7 G/DL (5.7-8.2)
[2024-03-12 12:52] VITALS: BP 163/88; TEMP 98.3; O2SAT 97
[2024-03-12] MEDS ORDERED: CYCL-707 PO (14:06)
[2024-03-12] MEDS: KETOROLAC 30 MG/ML 1ML VIAL IM ONE (14:14)
== END 2024-03-12 14:35 | disposition home or self-care (01) ==
LOC: M ED 10:01
DX: M51.16 Intervertebral disc disorders with radiculopathy, lumbar region (principal); E78.5 Hyperlipidemia, unspecified; F41.9 Anxiety disorder, unspecified; F20.9 Schizophrenia, unspecified; F17.210 Nicotine dependence, cigarettes, uncomplicated; Z88.8 Allergy status to other drugs, medicaments and biological substances; Z79.899 Other long term (current) drug therapy
CPT/HCPCS: 80048; 80076; 85610; 85730; 93971; 96372; 99283; J1885

== ENCOUNTER 2024-03-28 05:54 | Inpatient (IN) | payer OTHER ==
[~2024-03-28] VITALS: Ht 144.8 cm; Wt 55.2 kg
[~2024-03-28 05:54] MED LIST changes: +CYCL-707 PO
[2024-03-28 06:29] LABS: HEMATOCRIT 42.8 % (36.0-47.0); HEMOGLOBIN 14.4 g/dl (12.0-15.5); MEAN CORPUSCULAR HEMOGLOBIN 30.5 pg (27.0-33.0); MEAN CORPUSCULAR HGB CONC 33.6 g/dl (32.0-36.5); MEAN CORPUSCULAR VOLUME 90.7 fl (80.0-96.0); PLATELET COUNT, AUTOMATED 352 10^3/uL (150-450); RED BLOOD COUNT 4.72 10^6/uL (4.00-5.40); WHITE BLOOD COUNT 7.7 10^3/uL (4.0-10.0)
[2024-03-28 06:52] LABS: AMPHETAMINES LEVEL URINE NEGATIVE (NEGATIVE); BARBITURATES URINE NEGATIVE (NEGATIVE); BENZODIAZEPINES URINE NEGATIVE (NEGATIVE); COCAINE METABOLITE URINE NEGATIVE (NEGATIVE); METHADONE URINE NEGATIVE (NEGATIVE); OPIATES URINE NEGATIVE (NEGATIVE); PHENCYCLIDINE URINE NEGATIVE (NEGATIVE)
[2024-03-28 06:53] LABS: CANNABINOIDS URINE POSITIVE (NEGATIVE)
[2024-03-28 06:54] LABS: ETHYL ALCOHOL (ETHANOL) 0.003 % (0.000-0.010)
[2024-03-28 06:56] LABS: HCG, SERUM QUALITATIVE NEGATIVE (NEGATIVE); SALICYLATE LEVEL < 3.0 MG/DL (<30)
[2024-03-28 07:04] LABS: ALBUMIN 3.8 G/DL (3.2-5.2); ALKALINE PHOSPHATASE 55 U/L (35-104); ALT/SGPT 16 U/L (7.0-40); AST/SGOT 17 U/L (<34); BILIRUBIN,DIRECT 0.1 MG/DL (<0.4); BILIRUBIN,TOTAL 0.5 MG/DL (0.3-1.2); BLOOD UREA NITROGEN 18 MG/DL (9-23); CALCIUM LEVEL 8.5 MG/DL (8.5-10.1); CARBON DIOXIDE LEVEL 24 MMOL/L (20-31); CHLORIDE LEVEL 105 MMOL/L (98-107); GLOMERULAR FILTRATION RATE > 60.0 (>58); GLUCOSE, FASTING 98 MG/DL (60-100); POTASSIUM SERUM 4.6 MMOL/L (3.5-5.1); SODIUM LEVEL 139 MMOL/L (136-145); THYROID STIMULATING HORMONE 1.328 uIU/ML (0.55-4.78); TOTAL PROTEIN 7.2 G/DL (5.7-8.2)
[2024-03-28] MEDS ORDERED: BACL10TA2 PO (07:22)
[2024-03-28] MEDS ORDERED: ONDA-282 PO (07:22)
[2024-03-28] MEDS ORDERED: ONDANSETRON 4MG TAB PO PRN (10:10)
[2024-03-28] MEDS ORDERED: CYCLOBENZAPRINE 10MG TABLET PO PRN (10:10)
[2024-03-28] MEDS ORDERED: CYCL-707 PO (11:00)
[2024-03-28] MEDS ORDERED: HOME MED LIST COMPLETE! XX SCH (11:00)
[2024-03-28 13:10] VITALS: BP 142/92; TEMP 97.9; O2SAT 99
[2024-03-28] MEDS: MIRTAZAPINE 7.5MG PER 1/2 TABLET PO SCH (20:26)
[2024-03-28] MEDS: ARIPiprazole 10 MG TAB PO ONE (20:26)
[2024-03-29] MEDS: LORazepam 0.5 MG TAB PO PRN (06:07)
[2024-03-29 06:33] VITALS: BP 137/84; TEMP 98.4; O2SAT 100
[2024-03-29] MEDS ORDERED: ONDANSETRON 4MG ORAL DISINTEGRATING TAB PO PRN (08:55)
[2024-03-29] MEDS ORDERED: LORazepam 0.5 MG TAB PO SCH (09:00)
[2024-03-29] MEDS: ARIPiprazole 10 MG TAB PO SCH (09:19)
[2024-03-29 15:56] VITALS: BP 129/83; TEMP 98.2; O2SAT 98
[2024-03-29] MEDS: MIRTAZAPINE 7.5MG PER 1/2 TABLET PO SCH (20:37)
[2024-03-29] MEDS: HALOBETASOL PROPION 0.05% OINT 15 GM TOP PRN (22:09)
[2024-03-30 06:58] VITALS: BP 128/77; TEMP 97.7; O2SAT 98
[2024-03-30] MEDS: LORazepam 0.5 MG TAB PO SCH (08:11)
[2024-03-30 16:06] VITALS: BP 127/84; TEMP 98.5; O2SAT 100
[2024-03-30] MEDS: BACLOFEN 10 MG TAB PO PRN (16:13)
[2024-03-30] MEDS: CYCLOBENZAPRINE 10MG TABLET PO PRN (20:10)
[2024-03-31 06:22] VITALS: BP 124/76; TEMP 97.1; O2SAT 97
[2024-03-31 15:26] VITALS: BP 142/84; TEMP 98.6; O2SAT 97
[2024-04-01] MEDS ORDERED: ARIP10TA63 PO (02:32)
[2024-04-01] MEDS ORDERED: HYDR-3363 PO (02:32)
[2024-04-01] MEDS ORDERED: MIRT1TAB PO (02:32)
[2024-04-01] MEDS ORDERED: ATIV1TAB10 PO (02:32)
[2024-04-01 06:22] VITALS: BP 134/87; TEMP 97.7; O2SAT 100
== END 2024-04-01 11:55 | disposition home or self-care (01) | DRG 750 ==
LOC: M ED 05:54 → M ED INP 12:06 → M PSY 13:05
PROVIDERS: ADMIT Psychiatry & Neurology Psychiatry; ATTEND Internal Medicine
DX: F25.9 Schizoaffective disorder, unspecified (principal); Z79.899 Other long term (current) drug therapy; Z88.6 Allergy status to analgesic agent; Z88.8 Allergy status to other drugs, medicaments and biological substances; Z63.4 Disappearance and death of family member

== ENCOUNTER → 2024-10-13 | Outpatient (REF) | payer OTHER ==
[~2024-10-13] MED LIST changes: +ARIP20TA51 PO; +BACL10TA2 PO; +CIPR250T3 PO; +HYDR-3363 PO; +METR-265 PO; +ONDA-282 PO; +PROT1TAB2 PO
== END ==
LOC: M LAB REF 11:58
PROVIDERS: ATTEND Student in an Organized Health Care Education/Training Program
DX: K29.90 Gastroduodenitis, unspecified, without bleeding (principal)

== ENCOUNTER 2024-11-21 01:27 | Emergency (ER) | payer OTHER ==
[~2024-11-21] VITALS: Ht 144.8 cm; Wt 57.2 kg
[2024-11-21 02:11] LABS: BASO # 0.0 10^3/uL (0.0-0.2); BASO % 0.3 % (0.0-1.0); EOS # 0.1 10^3/uL (0.0-0.5); EOS % 0.8 % (0.0-3.0); LYMPH # 2.0 10^3/uL (1.5-5.0); LYMPH % 20.0 % (24.0-44.0); MONO # 0.6 10^3/uL (0.0-0.8); MONO % 6.3 % (2.0-8.0); NEUTROPHILS # 7.1 10^3/uL (1.5-8.5); NEUTROPHILS % 72.2 % (36.0-66.0); PLATELET COUNT, AUTOMATED 372 10^3/uL (150-450)
[2024-11-21 02:39] LABS: HCG, SERUM QUALITATIVE NEGATIVE (NEGATIVE)
[2024-11-21 02:40] LABS: ETHYL ALCOHOL (ETHANOL) < 0.003 % (0.000-0.010)
[2024-11-21 02:41] LABS: CPK CREATINE PHOSPHOKINASE 78 U/L (34-145); SALICYLATE LEVEL < 3.0 MG/DL (<30)
[2024-11-21 02:42] LABS: ALT/SGPT 32 U/L (7.0-40); AST/SGOT 27 U/L (<34); CALCIUM LEVEL 9.4 MG/DL (8.5-10.1); CARBON DIOXIDE LEVEL 22 MMOL/L (20-31); CHLORIDE LEVEL 106 MMOL/L (98-107); CREATININE FOR GFR 0.68 MG/DL (0.55-1.30); GLOMERULAR FILTRATION RATE > 90.0 (>58); POTASSIUM SERUM 4.1 MMOL/L (3.5-5.1); SODIUM LEVEL 140 MMOL/L (136-145)
[2024-11-21] MEDS: LORazepam 1 MG TAB PO ONE (03:06)
[2024-11-21 03:43] LABS: AMPHETAMINES LEVEL URINE NEGATIVE (NEGATIVE); BARBITURATES URINE NEGATIVE (NEGATIVE); BENZODIAZEPINES URINE NEGATIVE (NEGATIVE); COCAINE METABOLITE URINE NEGATIVE (NEGATIVE); OPIATES URINE NEGATIVE (NEGATIVE); PHENCYCLIDINE URINE NEGATIVE (NEGATIVE)
[2024-11-21 03:57] LABS: CANNABINOIDS URINE POSITIVE (NEGATIVE)
[2024-11-21 04:18] LABS: METHADONE URINE NEGATIVE (NEGATIVE)
[2024-11-21 08:04] VITALS: TEMP 98.8
[2024-11-21 11:29] VITALS: BP 160/84; O2SAT 98
== END 2024-11-21 11:33 | disposition home or self-care (01) ==
LOC: M ED 01:27
DX: F25.9 Schizoaffective disorder, unspecified (principal); Z88.6 Allergy status to analgesic agent; Z88.8 Allergy status to other drugs, medicaments and biological substances; Z79.2 Long term (current) use of antibiotics; Z79.899 Other long term (current) drug therapy